=== PATIENT | female | born 1955 | race Caucasian/White ===

== ENCOUNTER → 2016-06-21 | Outpatient (CLI) | payer OTHER ==
[~2016-06-21] MED LIST: ACET500T76 PO; ALBU8.5H5 PO; AMLO5TAB2 PO; ANAS1TAB PO; CALC200T3 PO; CEFD125S3 PO; CHOL100018 PO; CIPR500T87 PO; COLE1TAB2 PO; COLE1TAB4 PO; DOXY100C2 PO; ESCI10TA PO; ESCI20TA PO; ESOM40CA PO; FAMC500T33 PO; FLUT1DIS3; GABA100C8 PO; HYDR-3240 PO; HYDR-882; HYDR-882 PO; HYDR25TA6 PO; HYDR2TAB13 PO; LANS30CA16 PO; LEVO100T PO; LEVO125T5 PO; LEVO500T33 PO; LOSA50TA6 PO; OCTR20KI IM; TRAZ100T15 PO; TRAZ50TA18 PO; WARF3TAB PO; WARF7.5T PO; ZOLP10TA5 PO
== END | disposition home or self-care (01) ==
LOC: ROC 07:44
PROVIDERS: ATTEND Radiology Radiation Oncology
DX: C50.912 Malignant neoplasm of unspecified site of left female breast (principal); R91.1 Solitary pulmonary nodule; Z17.0 Estrogen receptor positive status [ER+]
CPT/HCPCS: 99213; G0463

== ENCOUNTER 2016-08-06 13:56 | Inpatient (IN) | payer OTHER ==
[~2016-08-06] VITALS: Ht 167.6 cm; Wt 102.0 kg
[2016-08-06 14:44] LABS: BLOOD UREA NITROGEN 20 mg/dL (7-18)
[2016-08-06 14:46] LABS: ACETAMINOPHEN < 2 mcg/mL (10-30)
[2016-08-06] MEDS ORDERED: POTASSIUM CHLORIDE 20 MEQ TAB.ER.PRT PO ONE ×3 (16:00→19:30)
[2016-08-06] MEDS ORDERED: OXYC5CAP4 PO (16:07)
[2016-08-06] MEDS ORDERED: MINO100C PO (16:07)
[2016-08-06] MEDS ORDERED: LANS30CA PO (16:11)
[2016-08-06] MEDS ORDERED: LEVO150T PO (16:11)
[2016-08-06] MEDS ORDERED: ONDA-40 PO (16:11)
[2016-08-06] MEDS ORDERED: OXYcodone/APAP 5/325MG TABLET ONE (16:20)
[2016-08-06] MEDS ORDERED: POTASSIUM CHLORIDE 20 MEQ TAB.ER.PRT ONE (16:25)
[2016-08-06] MEDS: OXYcodone/APAP 5/325MG TABLET PO PRN ×2 (16:27→22:25)
[2016-08-06] MEDS ORDERED: OXYcodone/APAP 5/325MG TABLET PO ONE (16:30)
[2016-08-06 16:31] LABS: DAU SCREEN DISCLAIMER
[2016-08-06] MEDS ORDERED: ENOX40SY4 SQ (16:39)
[2016-08-06] MEDS ORDERED: POLYETHYLENE GLYCOL 17 GM PACKET PO PRN ×2 (17:00→17:30)
[2016-08-06] MEDS ORDERED: HYDROcodone/APAP 5/325 TABLET PO PRN (17:00)
[2016-08-06] MEDS ORDERED: PLEASE ENTER HEIGHT AND WEIGHT MC SCH (17:00)
[2016-08-06] MEDS: ENOXAPARIN 40 MG/0.4 ML SQ SCH (17:30)
[2016-08-06] MEDS ORDERED: ONDANSETRON ODT 4 MG PO PRN (17:30)
[2016-08-06] MEDS ORDERED: POTASSIUM CHLORIDE 20 MEQ, MAGNESIUM SULFATE 1 GM, FOLIC ACID 1 MG, THIAMINE 100 MG, MV... IV SCH (17:30)
[2016-08-06] MEDS ORDERED: LABETALOL 5MG/ML, 20ML IV PRN (17:30)
[2016-08-06] MEDS ORDERED: ONDANSETRON 2MG/ML, 2ML IVP PRN (17:30)
[2016-08-06 18:29] VITALS: BP 125/77
[2016-08-06] MEDS ORDERED: MAGNESIUM SULFATE PMX 2GM/50ML 50 ML IV ONE (19:30)
[2016-08-06] MEDS: GABAPENTIN 100 MG CAPSULE PO SCH ×2 (21:00→21:24)
[2016-08-06] MEDS: LOSARTAN 50MG TABLET PO SCH (21:23)
[2016-08-06] MEDS: TRAZODONE 100MG TABLET PO SCH (21:23)
[2016-08-06] MEDS: SODIUM CHLORIDE 0.9% 1,000 ML IV SCH (21:24)
[2016-08-07 01:04] VITALS: BP 119/74
[2016-08-07] MEDS: HYDROcodone/APAP 5/325 TABLET PO PRN ×3 (04:21→20:10)
[2016-08-07 04:41] LABS: BLOOD UREA NITROGEN 17 mg/dL (7-18)
[2016-08-07 04:45] LABS: ASPARTATE AMINO TRANSFERASE 24 U/L (15-37)
[2016-08-07 05:05] LABS: PATH.CAST-FLAG NOT PRESENT; SPERM-FLAG NOT PRESENT; SRC-FLAG NOT PRESENT; XTAL-FLAG NOT PRESENT; YLC-FLAG NOT PRESENT
[2016-08-07] MEDS: LEVOTHYROXINE 150 MCG TABLET PO SCH (05:35)
[2016-08-07 06:44] VITALS: BP 127/84
[2016-08-07] MEDS: FAMCICLOVIR 500 MG TABLET PO SCH (07:50)
[2016-08-07] MEDS: GABAPENTIN 100 MG CAPSULE PO SCH ×3 (07:50→22:08)
[2016-08-07] MEDS: HYDROCHLOROTHIAZIDE 25 MG TABLET PO SCH (07:51)
[2016-08-07] MEDS: AMLODIPINE 5 MG TABLET PO SCH (07:51)
[2016-08-07] MEDS: SERTRALINE 50MG TABLET PO SCH (07:51)
[2016-08-07] MEDS: SENNA/DOCUSATE TABLET PO SCH (07:51)
[2016-08-07] MEDS: PANTOPROZOLE 40MG TABLET PO SCH (07:51)
[2016-08-07] MEDS: ANASTROZOLE 1 MG TABLET PO SCH (07:52)
[2016-08-07] MEDS: LOSARTAN 50MG TABLET PO SCH ×2 (07:52→22:08)
[2016-08-07] MEDS: SODIUM CHLORIDE 0.9% 1,000 ML IV SCH (07:57)
[2016-08-07] MEDS ORDERED: SENNA/DOCUSATE TABLET PO SCH (09:00)
[2016-08-07] MEDS: OCTREOTIDE 100MCG/ML, 1ML (0.1MG/ML) SQ PRN (12:38)
[2016-08-07 13:11] VITALS: BP 129/70
[2016-08-07] MEDS: ENOXAPARIN 40 MG/0.4 ML SQ SCH (15:26)
[2016-08-07 18:48] VITALS: BP 131/75
[2016-08-07] MEDS: TRAZODONE 100MG TABLET PO SCH (22:08)
[2016-08-07] MEDS: SODIUM CHLORIDE FLUSH 10ML SYR IVF SCH (22:09)
[2016-08-08 02:15] VITALS: BP 111/69
[2016-08-08 05:16] LABS: ASPARTATE AMINO TRANSFERASE 22 U/L (15-37); BLOOD UREA NITROGEN 18 mg/dL (7-18)
[2016-08-08] MEDS: LEVOTHYROXINE 150 MCG TABLET PO SCH (05:51)
[2016-08-08] MEDS: ANASTROZOLE 1 MG TABLET PO SCH (08:08)
[2016-08-08] MEDS: SERTRALINE 50MG TABLET PO SCH (08:11)
[2016-08-08] MEDS: FAMCICLOVIR 500 MG TABLET PO SCH (08:11)
[2016-08-08] MEDS: HYDROCHLOROTHIAZIDE 25 MG TABLET PO SCH (08:11)
[2016-08-08] MEDS: LOSARTAN 50MG TABLET PO SCH ×2 (08:11→20:31)
[2016-08-08] MEDS: PANTOPROZOLE 40MG TABLET PO SCH (08:11)
[2016-08-08] MEDS: AMLODIPINE 5 MG TABLET PO SCH (08:11)
[2016-08-08] MEDS: GABAPENTIN 100 MG CAPSULE PO SCH ×3 (08:12→20:31)
[2016-08-08] MEDS: SENNA/DOCUSATE TABLET PO SCH (08:12)
[2016-08-08] MEDS: SODIUM CHLORIDE FLUSH 10ML SYR IVF SCH ×2 (08:12→20:30)
[2016-08-08 08:16] VITALS: BP 150/89
[2016-08-08] MEDS: OCTREOTIDE 100MCG/ML, 1ML (0.1MG/ML) SQ PRN ×2 (08:38→20:30)
[2016-08-08 14:18] VITALS: BP 121/74
[2016-08-08] MEDS: ENOXAPARIN 40 MG/0.4 ML SQ SCH (16:02)
[2016-08-08 20:28] VITALS: BP 129/87
[2016-08-08] MEDS: DOXYCYCLINE 100MG TABLET PO SCH (20:30)
[2016-08-08] MEDS: TRAZODONE 100MG TABLET PO SCH (20:31)
[2016-08-09 01:55] VITALS: BP 143/81
[2016-08-09] MEDS: HYDROcodone/APAP 5/325 TABLET PO PRN ×3 (02:01→18:01)
[2016-08-09] MEDS ORDERED: LEVOTHYROXINE 150 MCG TABLET PO SCH (06:00)
[2016-08-09] MEDS: LEVOTHYROXINE 175 MCG TABLET PO SCH (06:13)
[2016-08-09] MEDS: PANTOPROZOLE 40MG TABLET PO SCH (07:57)
[2016-08-09] MEDS: ANASTROZOLE 1 MG TABLET PO SCH (08:00)
[2016-08-09] MEDS: LOSARTAN 50MG TABLET PO SCH ×2 (08:01→20:10)
[2016-08-09] MEDS: FAMCICLOVIR 500 MG TABLET PO SCH (08:01)
[2016-08-09] MEDS: AMLODIPINE 5 MG TABLET PO SCH (08:02)
[2016-08-09] MEDS: HYDROCHLOROTHIAZIDE 25 MG TABLET PO SCH (08:02)
[2016-08-09] MEDS: SENNA/DOCUSATE TABLET PO SCH (08:02)
[2016-08-09] MEDS: GABAPENTIN 100 MG CAPSULE PO SCH ×3 (08:02→20:08)
[2016-08-09] MEDS: SERTRALINE 50MG TABLET PO SCH (08:03)
[2016-08-09] MEDS: DOXYCYCLINE 100MG TABLET PO SCH ×2 (08:03→20:08)
[2016-08-09 08:05] VITALS: BP 143/84
[2016-08-09] MEDS: SODIUM CHLORIDE FLUSH 10ML SYR IVF SCH ×2 (08:55→20:09)
[2016-08-09] MEDS: OCTREOTIDE 100MCG/ML, 1ML (0.1MG/ML) SQ PRN (12:36)
[2016-08-09 13:31] VITALS: BP 108/70
[2016-08-09] MEDS: ENOXAPARIN 40 MG/0.4 ML SQ SCH (18:01)
[2016-08-09 20:05] VITALS: BP 103/66
[2016-08-09] MEDS: TRAZODONE 100MG TABLET PO SCH (20:08)
[2016-08-10 01:20] VITALS: BP 111/67
[2016-08-10] MEDS: LEVOTHYROXINE 175 MCG TABLET PO SCH (05:25)
[2016-08-10] MEDS: HYDROcodone/APAP 5/325 TABLET PO PRN ×4 (05:25→20:31)
[2016-08-10] MEDS: OCTREOTIDE 100MCG/ML, 1ML (0.1MG/ML) SQ PRN ×2 (05:34→13:40)
[2016-08-10 07:56] VITALS: BP 103/72
[2016-08-10] MEDS: PANTOPROZOLE 40MG TABLET PO SCH (08:25)
[2016-08-10] MEDS: GABAPENTIN 100 MG CAPSULE PO SCH ×3 (08:26→20:32)
[2016-08-10] MEDS: DOXYCYCLINE 100MG TABLET PO SCH ×2 (08:26→20:32)
[2016-08-10] MEDS: AMLODIPINE 5 MG TABLET PO SCH ×2 (08:26→09:00)
[2016-08-10] MEDS: SENNA/DOCUSATE TABLET PO SCH (08:27)
[2016-08-10] MEDS: LOSARTAN 50MG TABLET PO SCH ×2 (08:27→20:32)
[2016-08-10] MEDS: SERTRALINE 50MG TABLET PO SCH (08:28)
[2016-08-10] MEDS: SODIUM CHLORIDE FLUSH 10ML SYR IVF SCH ×2 (08:29→21:50)
[2016-08-10] MEDS: HYDROCHLOROTHIAZIDE 25 MG TABLET PO SCH (08:29)
[2016-08-10] MEDS: FAMCICLOVIR 500 MG TABLET PO SCH (08:30)
[2016-08-10] MEDS: ANASTROZOLE 1 MG TABLET PO SCH (08:37)
[2016-08-10 12:26] VITALS: BP 101/65
[2016-08-10] MEDS: ENOXAPARIN 40 MG/0.4 ML SQ SCH (17:19)
[2016-08-10 19:50] VITALS: BP 113/75
[2016-08-10] MEDS: TRAZODONE 100MG TABLET PO SCH (21:50)
[2016-08-11 00:32] VITALS: BP 102/67
[2016-08-11] MEDS: LEVOTHYROXINE 175 MCG TABLET PO SCH (06:03)
[2016-08-11] MEDS: PANTOPROZOLE 40MG TABLET PO SCH (07:30)
[2016-08-11 08:05] VITALS: BP 135/85
[2016-08-11] MEDS: GABAPENTIN 100 MG CAPSULE PO SCH ×3 (08:58→19:47)
[2016-08-11] MEDS: AMLODIPINE 5 MG TABLET PO SCH (08:58)
[2016-08-11] MEDS: HYDROCHLOROTHIAZIDE 25 MG TABLET PO SCH (08:58)
[2016-08-11] MEDS: LOSARTAN 50MG TABLET PO SCH ×2 (08:58→19:47)
[2016-08-11] MEDS: FAMCICLOVIR 500 MG TABLET PO SCH (08:58)
[2016-08-11] MEDS: DOXYCYCLINE 100MG TABLET PO SCH ×2 (08:58→19:47)
[2016-08-11] MEDS: SENNA/DOCUSATE TABLET PO SCH (08:58)
[2016-08-11] MEDS: OCTREOTIDE 100MCG/ML, 1ML (0.1MG/ML) SQ PRN ×2 (08:59→18:26)
[2016-08-11] MEDS: SERTRALINE 50MG TABLET PO SCH (09:00)
[2016-08-11] MEDS: SODIUM CHLORIDE FLUSH 10ML SYR IVF SCH ×2 (09:00→19:46)
[2016-08-11] MEDS: ANASTROZOLE 1 MG TABLET PO SCH (09:02)
[2016-08-11] MEDS: HYDROcodone/APAP 5/325 TABLET PO PRN ×3 (11:18→22:53)
[2016-08-11 15:20] VITALS: BP 114/71
[2016-08-11] MEDS: ENOXAPARIN 40 MG/0.4 ML SQ SCH (16:26)
[2016-08-11 19:18] VITALS: BP 113/71
[2016-08-11] MEDS: TRAZODONE 100MG TABLET PO SCH (19:47)
[2016-08-12 03:10] VITALS: BP 104/67
[2016-08-12] MEDS: LEVOTHYROXINE 175 MCG TABLET PO SCH (05:26)
[2016-08-12] MEDS: HYDROcodone/APAP 5/325 TABLET PO PRN ×2 (06:10→16:37)
[2016-08-12 07:19] VITALS: BP 115/68
[2016-08-12] MEDS: AMLODIPINE 5 MG TABLET PO SCH (07:22)
[2016-08-12] MEDS: GABAPENTIN 100 MG CAPSULE PO SCH ×3 (07:22→16:18)
[2016-08-12] MEDS: SENNA/DOCUSATE TABLET PO SCH (07:22)
[2016-08-12] MEDS: FAMCICLOVIR 500 MG TABLET PO SCH (07:23)
[2016-08-12] MEDS: HYDROCHLOROTHIAZIDE 25 MG TABLET PO SCH (07:23)
[2016-08-12] MEDS: DOXYCYCLINE 100MG TABLET PO SCH (07:23)
[2016-08-12] MEDS: SERTRALINE 50MG TABLET PO SCH (07:23)
[2016-08-12] MEDS: LOSARTAN 50MG TABLET PO SCH (07:23)
[2016-08-12] MEDS: PANTOPROZOLE 40MG TABLET PO SCH (07:23)
[2016-08-12] MEDS: SODIUM CHLORIDE FLUSH 10ML SYR IVF SCH (07:24)
[2016-08-12] MEDS: ANASTROZOLE 1 MG TABLET PO SCH (07:25)
[2016-08-12] MEDS: OCTREOTIDE 100MCG/ML, 1ML (0.1MG/ML) SQ PRN ×2 (10:18→17:52)
[2016-08-12 13:14] VITALS: BP 106/68
[2016-08-12] MEDS ORDERED: SERT50TA5 PO (15:39)
[2016-08-12] MEDS ORDERED: DOXY100T PO (15:39)
[2016-08-12] MEDS: ENOXAPARIN 40 MG/0.4 ML SQ SCH (16:17)
== END 2016-08-12 18:03 | disposition home or self-care (01) | DRG 683 ==
LOC: ED 15:12 → UNDOADMOB 15:53 → EDIP 15:53 → INTOOBSV 17:04 → OBSVTOIN 17:04 → EDIP 17:04 → 3NW 18:37
PROVIDERS: ADMIT Family Medicine; ATTEND Family Medicine
DX: N17.0 Acute kidney failure with tubular necrosis (principal); R45.851 Suicidal ideations; F32.9 Major depressive disorder, single episode, unspecified; I10 Essential (primary) hypertension; D72.829 Elevated white blood cell count, unspecified; E87.6 Hypokalemia; E03.9 Hypothyroidism, unspecified; G47.00 Insomnia, unspecified; J45.909 Unspecified asthma, uncomplicated; G47.33 Obstructive sleep apnea (adult) (pediatric); E55.9 Vitamin D deficiency, unspecified; G89.29 Other chronic pain; R91.1 Solitary pulmonary nodule; M54.9 Dorsalgia, unspecified; K21.9 Gastro-esophageal reflux disease without esophagitis; Z79.01 Long term (current) use of anticoagulants; Z79.899 Other long term (current) drug therapy; Z80.3 Family history of malignant neoplasm of breast; Z81.8 Family history of other mental and behavioral disorders; Z82.49 Family history of ischemic heart disease and other diseases of the circulatory system; Z85.3 Personal history of malignant neoplasm of breast; Z86.711 Personal history of pulmonary embolism; Z82.5 Family history of asthma and other chronic lower respiratory diseases; Z83.3 Family history of diabetes mellitus; Z87.440 Personal history of urinary (tract) infections; Z63.0 Problems in relationship with spouse or partner; Z88.1 Allergy status to other antibiotic agents; Z88.5 Allergy status to narcotic agent; Z88.8 Allergy status to other drugs, medicaments and biological substances; Z90.49 Acquired absence of other specified parts of digestive tract; Z98.49 Cataract extraction status, unspecified eye; F11.90 Opioid use, unspecified, uncomplicated; F13.90 Sedative, hypnotic, or anxiolytic use, unspecified, uncomplicated; F12.10 Cannabis abuse, uncomplicated
CPT/HCPCS: 36415; 80048; 80053; 80307; 80329; 81003; 82040; 82746; 83036; 83735; 84425; 84439; 84443; 85025; 85610; 87086; J1650; J2354; G0480; J3475; J7030

== ENCOUNTER 2016-08-21 19:45 | Observation (INO) | payer OTHER ==
[~2016-08-21] VITALS: Ht 167.6 cm; Wt 100.9 kg
[~2016-08-21 19:45] MED LIST changes: +DOXY100T PO; +ENOX40SY4 SQ; +LANS30CA PO; +LEVO150T PO; +MINO100C PO; +ONDA-40 PO; +OXYC5CAP4 PO; +SERT50TA5 PO
[2016-08-21 21:49] LABS: BLOOD UREA NITROGEN 16 mg/dL (7-18)
[2016-08-21 22:01] LABS: IS PT STATUS REG ER OR PRE ER? YES
[2016-08-21] MEDS ORDERED: SODIUM CHLORIDE 0.9% 1,000ML IVBOLUS ONE (22:30)
[2016-08-21] MEDS ORDERED: POTASSIUM CHLORIDE 20 MEQ TAB.ER.PRT PO ONE (23:00)
[2016-08-21] MEDS ORDERED: ENOXAPARIN 100 MG/ML SQ ONE (23:30)
[2016-08-21] MEDS ORDERED: POTASSIUM CHLORIDE 20 MEQ TAB.ER.PRT ONE (23:40)
[2016-08-21] MEDS ORDERED: OMNIPAQUE 350 MG/ML, 100ML BOTTLE ONE (23:56)
[2016-08-22 01:00] VITALS: BP 123/83
[2016-08-22] MEDS ORDERED: ONDANSETRON ODT 4 MG PO PRN (01:00)
[2016-08-22] MEDS ORDERED: ACETAMINOPHEN 325 MG TABLET PO PRN (01:00)
[2016-08-22 01:40] VITALS: BP 132/80
[2016-08-22] MEDS: HYDROcodone/APAP 5/325 TABLET PO PRN ×3 (02:09→08:29)
[2016-08-22 05:37] LABS: BLOOD UREA NITROGEN 15 mg/dL (7-18)
[2016-08-22] MEDS ORDERED: POTASSIUM CHLORIDE 20 MEQ TAB.ER.PRT PO ONE (06:00)
[2016-08-22] MEDS ORDERED: LEVOTHYROXINE 175 MCG TABLET PO SCH (06:00)
[2016-08-22 08:00] VITALS: BP 131/84
[2016-08-22] MEDS ORDERED: FAMCICLOVIR 500 MG TABLET PO SCH (09:00)
[2016-08-22] MEDS ORDERED: ENOXAPARIN 100 MG/ML SQ SCH (09:00)
[2016-08-22] MEDS ORDERED: AMLODIPINE 5 MG TABLET PO SCH (09:00)
[2016-08-22] MEDS ORDERED: LOSARTAN 50MG TABLET PO SCH (09:00)
[2016-08-22] MEDS ORDERED: HYDROCHLOROTHIAZIDE 25 MG TABLET PO SCH (09:00)
[2016-08-22] MEDS ORDERED: GABAPENTIN 100 MG CAPSULE PO SCH (09:00)
[2016-08-22] MEDS ORDERED: SERTRALINE 50MG TABLET PO SCH (09:00)
[2016-08-22] MEDS ORDERED: ANASTROZOLE 1 MG TABLET PO SCH (09:00)
[2016-08-22 13:14] VITALS: BP 114/71
[2016-08-22] MEDS ORDERED: TRAZODONE 100MG TABLET PO SCH (21:00)
== END 2016-08-22 14:00 | disposition home or self-care (01) ==
LOC: ED 22:11 → EDIP 23:30 → INTOOBSV 23:30 → 4WST 08-22 01:03
PROVIDERS: ADMIT Internal Medicine; ATTEND Internal Medicine
DX: I26.99 Other pulmonary embolism without acute cor pulmonale (principal); E87.6 Hypokalemia; F41.9 Anxiety disorder, unspecified; E34.0 Carcinoid syndrome; F19.20 Other psychoactive substance dependence, uncomplicated; G47.00 Insomnia, unspecified; I10 Essential (primary) hypertension; K21.9 Gastro-esophageal reflux disease without esophagitis; Z80.3 Family history of malignant neoplasm of breast; Z82.49 Family history of ischemic heart disease and other diseases of the circulatory system; Z85.3 Personal history of malignant neoplasm of breast; Z86.711 Personal history of pulmonary embolism; Z90.10 Acquired absence of unspecified breast and nipple
CPT/HCPCS: 36415; 71010; 71275; 80048; 82040; 84484; 85025; 85379; 87324; 93005; 96361; 96372; 99285; G0378; J1650; J7030; Q9967

== ENCOUNTER 2016-08-31 15:52 | Emergency (ER) | payer OTHER ==
[~2016-08-31] VITALS: Ht 167.6 cm; Wt 101.2 kg
[2016-08-31] MEDS ORDERED: ONDANSETRON 2MG/ML, 2ML IVPush ONE (17:00)
[2016-08-31] MEDS ORDERED: MORPHINE SULFATE 4 MG/ML, 1ML IVPush PRN (17:00)
[2016-08-31 17:25] LABS: BLOOD UREA NITROGEN 20 mg/dL (7-18)
[2016-08-31 17:31] LABS: IS PT STATUS REG ER OR PRE ER? YES
[2016-08-31] MEDS ORDERED: ONDANSETRON 2MG/ML, 2ML ONE (17:33)
[2016-08-31] MEDS ORDERED: MORPHINE SULFATE 4 MG/ML, 1ML ONE (17:33)
[2016-08-31] MEDS ORDERED: ENOX100S5 SQ (17:41)
[2016-08-31] MEDS ORDERED: OCTR50AM SC (17:47)
[2016-08-31] MEDS ORDERED: OCTR50AM IM (17:47)
[2016-08-31 18:41] VITALS: BP 114/63
== END 2016-08-31 19:15 | disposition home or self-care (01) ==
LOC: ED 18:50
DX: Z86.711 Personal history of pulmonary embolism (principal); I10 Essential (primary) hypertension; K21.9 Gastro-esophageal reflux disease without esophagitis; E07.9 Disorder of thyroid, unspecified
CPT/HCPCS: 36415; 71010; 80048; 82040; 83880; 84484; 85025; 85610; 85730; 93005; 96374; 96375; 99285; J2405

== ENCOUNTER 2016-12-14 21:19 | Emergency (ER) | payer OTHER ==
[~2016-12-14] VITALS: Ht 167.6 cm; Wt 100.4 kg
[~2016-12-14 21:19] MED LIST changes: +ACET500T71 PO; -ACET500T76 PO; +CHOL100012 PO; -CHOL100018 PO; -COLE1TAB4 PO; +COLE1TAB5 PO; +ENOX100S5 SQ; +GABA-826 PO; -GABA100C8 PO; -HYDR2TAB13 PO; +HYDR2TAB29 PO; -LANS30CA16 PO; +LANS30CA60 PO; -LEVO500T33 PO; +LEVO500T47 PO; +OCTR50AM IM; +OCTR50AM SC; -ONDA-40 PO; +ONDA8TAB15 PO; +OXYC5CAP2 PO; -OXYC5CAP4 PO
[2016-12-14] MEDS ORDERED: SODIUM CHLORIDE 0.9% 1,000 ML IV ONE (22:46)
[2016-12-14] MEDS ORDERED: ONDANSETRON 2MG/ML, 2ML ONE (22:54)
[2016-12-14] MEDS ORDERED: ONDANSETRON 2MG/ML, 2ML IVPush ONE (23:00)
[2016-12-14] MEDS ORDERED: SODIUM CHLORIDE FLUSH 10ML SYR IVF ONE (23:00)
[2016-12-14 23:18] LABS: HEMOGLOBIN 13.8 g/dL (11.7-16.4); WHITE BLOOD COUNT 13.3 x10^3/uL (3.4-10)
[2016-12-14 23:27] LABS: BLOOD UREA NITROGEN 18 mg/dL (7-18)
[2016-12-14 23:33] LABS: ASPARTATE AMINO TRANSFERASE 15 U/L (15-37)
[2016-12-14 23:42] LABS: IS PT STATUS REG ER OR PRE ER? YES
[2016-12-15] MEDS ORDERED: POTASSIUM CHLORIDE 20 MEQ TAB.ER.PRT PO ONE
[2016-12-15] MEDS ORDERED: POTASSIUM CHLORIDE 20 MEQ TAB.ER.PRT ONE (00:01)
[2016-12-15 00:05] VITALS: BP 118/83
== END 2016-12-15 00:04 | disposition home or self-care (01) ==
LOC: ED 23:03
DX: R07.2 Precordial pain (principal); E87.6 Hypokalemia; K21.9 Gastro-esophageal reflux disease without esophagitis; E07.9 Disorder of thyroid, unspecified; Z85.3 Personal history of malignant neoplasm of breast; Z86.711 Personal history of pulmonary embolism; Z86.718 Personal history of other venous thrombosis and embolism; Z98.890 Other specified postprocedural states; Z88.5 Allergy status to narcotic agent; Z88.1 Allergy status to other antibiotic agents; Z88.8 Allergy status to other drugs, medicaments and biological substances
CPT/HCPCS: 36415; 71010; 80053; 83880; 84484; 85025; 85610; 85730; 93005; 96361; 96374; 99285; J2405; J7030

== ENCOUNTER → 2017-02-16 | Outpatient (CLI) | payer OTHER | END | disposition home or self-care (01) | LOC: CFH 15:26 | PROVIDERS: ATTEND Physical Medicine & Rehabilitation | DX: M48.061 Spinal stenosis, lumbar region without neurogenic claudication (principal); M48.07 Spinal stenosis, lumbosacral region; M51.26 Other intervertebral disc displacement, lumbar region; M51.27 Other intervertebral disc displacement, lumbosacral region; M43.16 Spondylolisthesis, lumbar region | CPT/HCPCS: 72148 ==

== ENCOUNTER → 2017-06-10 | Outpatient (CLI) | payer OTHER ==
[~2017-06-10] MED LIST changes: +CROMOLYN INH; +GABA300C10 PO; +OCTREOTIDE SQ; +WARF5TAB PO
== END | disposition home or self-care (01) ==
LOC: ROC 07:20
PROVIDERS: ATTEND Radiology Radiation Oncology
DX: C50.912 Malignant neoplasm of unspecified site of left female breast (principal)
CPT/HCPCS: 99213; G0463

== ENCOUNTER 2017-08-25 17:20 | Emergency (ER) | payer OTHER ==
[~2017-08-25] VITALS: Ht 167.6 cm; Wt 102.0 kg
[2017-08-25 17:48] LABS: BASOPHILS # (AUTO) 0.06 x10^3/uL (0-0.1); BASOPHILS % (AUTO) 1 % (0-1); EOSINOPHILS # (AUTO) 0.08 x10^3/uL (0-0.4); EOSINOPHILS % (AUTO) 1 % (1-7); LYMPHOCYTES # (AUTO) 2.31 x10^3/uL (1-3.4); LYMPHOCYTES % (AUTO) 18 % (22-44); MD NO; MEAN CORPUSCULAR HEMOGLOBIN 29.7 pg (27.0-34.8); MEAN CORPUSCULAR HGB CONC 33.2 g/dL (32.4-35.8); MEAN CORPUSCULAR VOLUME 89.6 fL (80-100); MEAN PLATELET VOLUME 8.6 fL (7.4-10.4); MONOCYTES # (AUTO) 0.93 x10^3/uL (0.2-0.8); MONOCYTES % (AUTO) 7 % (2-9); NEUTROPHILS # (AUTO) 9.56 x10^3/uL (1.8-6.8); NEUTROPHILS % (AUTO) 74 % (42-75); PLATELET COUNT 304 x10^3/uL (130-400); RED BLOOD COUNT 4.88 x10^6/uL (3.82-5.3); RED CELL DISTRIBUTION WIDTH 15.1 % (9.6-15.2)
[2017-08-25 18:00] LABS: ALANINE AMINOTRANSFERASE 22 U/L (12-78); ALBUMIN 3.8 g/dL (3.4-5.0); ANION GAP 10 mmol/L (5-15); CALCIUM 8.9 mg/dL (8.5-10.1); CHLORIDE 102 mmol/L (98-107)
[2017-08-25] MEDS ORDERED: ALBUTEROL/IPRATROPIUM 2.5MG/0.5MG, 3 ML NPPB ONE (18:00)
[2017-08-25 18:04] LABS: ALKALINE PHOSPHATASE 98 U/L (45-117); BILIRUBIN,TOTAL 0.3 mg/dL (0.2-1.0); TOTAL PROTEIN 8.3 g/dL (6.4-8.2); TROPONIN I < 0.015 ng/mL (0.000-0.045)
[2017-08-25 18:24] LABS: INTERNATIONAL NORMALIZED RATIO 2.67 (0.93-1.1); PROTHROMBIN TIME 27.2 Seconds (9.6-11.5)
[2017-08-25] MEDS ORDERED: ALBUTEROL/IPRATROPIUM 2.5MG/0.5MG, 3 ML ONE (18:39)
[2017-08-25 18:45] VITALS: BP 137/77
== END 2017-08-25 19:19 | disposition home or self-care (01) ==
LOC: ED 18:13
DX: R06.00 Dyspnea, unspecified (principal); K21.9 Gastro-esophageal reflux disease without esophagitis; I10 Essential (primary) hypertension; J45.909 Unspecified asthma, uncomplicated; Z86.718 Personal history of other venous thrombosis and embolism; Z86.711 Personal history of pulmonary embolism; Z90.49 Acquired absence of other specified parts of digestive tract
CPT/HCPCS: 36415; 71045; 80053; 83880; 84484; 85025; 85610; 85730; 93005; 94640; 99285; J7512; J7620

== ENCOUNTER 2017-09-27 15:34 | Inpatient (IN) | payer OTHER ==
[~2017-09-27] VITALS: Ht 167.6 cm; Wt 102.7 kg
[2017-09-27 16:06] LABS: BASOPHILS % (AUTO) 0 % (0-1); EOSINOPHILS # (AUTO) 0.03 x10^3/uL (0-0.4); EOSINOPHILS % (AUTO) 0 % (1-7); LYMPHOCYTES # (AUTO) 1.22 x10^3/uL (1-3.4); LYMPHOCYTES % (AUTO) 12 % (22-44); MD NO; MEAN CORPUSCULAR HEMOGLOBIN 30.2 pg (27.0-34.8); MEAN CORPUSCULAR VOLUME 91.6 fL (80-100); MEAN PLATELET VOLUME 8.9 fL (7.4-10.4); MONOCYTES # (AUTO) 0.79 x10^3/uL (0.2-0.8); MONOCYTES % (AUTO) 8 % (2-9); NEUTROPHILS # (AUTO) 8.35 x10^3/uL (1.8-6.8); NEUTROPHILS % (AUTO) 80 % (42-75); PLATELET COUNT 284 x10^3/uL (130-400); RED BLOOD COUNT 4.85 x10^6/uL (3.82-5.3); RED CELL DISTRIBUTION WIDTH 15.4 % (9.6-15.2)
[2017-09-27 16:16] LABS: INTERNATIONAL NORMALIZED RATIO 2.49 (0.93-1.1); PROTHROMBIN TIME 25.2 Seconds (9.6-11.5)
[2017-09-27 16:19] LABS: ALANINE AMINOTRANSFERASE 25 U/L (12-78); ALBUMIN 3.8 g/dL (3.4-5.0); ANION GAP 9 mmol/L (5-15); CALCIUM 9.2 mg/dL (8.5-10.1); CHLORIDE 106 mmol/L (98-107)
[2017-09-27 16:21] LABS: ALKALINE PHOSPHATASE 114 U/L (45-117); BILIRUBIN,TOTAL 0.4 mg/dL (0.2-1.0); TOTAL PROTEIN 8.3 g/dL (6.4-8.2)
[2017-09-27 16:26] LABS: TROPONIN I < 0.015 ng/mL (0.000-0.045)
[2017-09-27] MEDS ORDERED: hydrALAzine 20 MG/ML, 1ML IVPush PRN (18:00)
[2017-09-27] MEDS ORDERED: DOCUSATE 100 MG CAPSULE PO PRN (18:00)
[2017-09-27] MEDS ORDERED: BISACODYL 10 MG SUPP PR PRN (18:00)
[2017-09-27] MEDS ORDERED: KETOROLAC 30 MG/1 ML IVPush PRN (18:00)
[2017-09-27] MEDS ORDERED: ONDANSETRON 2MG/ML, 2ML IVPush PRN (18:00)
[2017-09-27] MEDS ORDERED: POLYETHYLENE GLYCOL 17 GM PACKET PO PRN (18:00)
[2017-09-27] MEDS ORDERED: AMLODIPINE 2.5 MG TABLET PO PRN (18:30)
[2017-09-27] MEDS ORDERED: WARFARIN BIOPROSTHETIC VALVE PROTOCOL 2-3 XX PRN (18:30)
[2017-09-27 19:03] VITALS: BP 126/81
[2017-09-27] MEDS ORDERED: WARFARIN 5 MG TABLET PO-COUM ONE (19:30)
[2017-09-27] MEDS: ANASTRAZOLE MC SCH (19:30)
[2017-09-27] MEDS: SODIUM CHLORIDE FLUSH 10ML SYR IVF SCH (20:25)
[2017-09-27] MEDS: GUAIFENESIN ER 600 MG TABLET PO SCH (20:25)
[2017-09-27] MEDS: AMPICILLIN/SULBACTAM 3 GM in SODIUM CHLORIDE 0.9% 100 ML IV SCH (20:25)
[2017-09-27 20:49] VITALS: BP 126/81
[2017-09-27] MEDS ORDERED: TRAZODONE 100MG TABLET PO SCH (21:00)
[2017-09-27] MEDS ORDERED: OCTREOTIDE 100MCG/ML, 1ML (0.1MG/ML) SQ SCH (21:00)
[2017-09-27] MEDS: DOXYCYCLINE 100 MG in DEXTROSE 5% 250 ML IV SCH (21:42)
[2017-09-27 22:00] LABS: TROPONIN I < 0.015 ng/mL (0.000-0.045)
[2017-09-28 00:36] VITALS: BP 114/70
[2017-09-28 02:13] VITALS: BP 160/109
[2017-09-28 02:16] LABS: BASOPHILS # (AUTO) 0.04 x10^3/uL (0-0.1); BASOPHILS % (AUTO) 1 % (0-1); EOSINOPHILS # (AUTO) 0.07 x10^3/uL (0-0.4); EOSINOPHILS % (AUTO) 1 % (1-7); LYMPHOCYTES # (AUTO) 1.29 x10^3/uL (1-3.4); LYMPHOCYTES % (AUTO) 17 % (22-44); MD NO; MEAN CORPUSCULAR HGB CONC 32.9 g/dL (32.4-35.8); MEAN CORPUSCULAR VOLUME 91.1 fL (80-100); MEAN PLATELET VOLUME 9.1 fL (7.4-10.4); MONOCYTES # (AUTO) 0.72 x10^3/uL (0.2-0.8); MONOCYTES % (AUTO) 9 % (2-9); NEUTROPHILS # (AUTO) 5.61 x10^3/uL (1.8-6.8); NEUTROPHILS % (AUTO) 73 % (42-75); PLATELET COUNT 226 x10^3/uL (130-400); RED CELL DISTRIBUTION WIDTH 15.2 % (9.6-15.2)
[2017-09-28 02:20] LABS: INTERNATIONAL NORMALIZED RATIO 2.25 (0.93-1.1); PROTHROMBIN TIME 22.8 Seconds (9.6-11.5)
[2017-09-28 02:25] LABS: ANION GAP 7 mmol/L (5-15); CHLORIDE 108 mmol/L (98-107); CHOLESTEROL, TOTAL 128 mg/dL (140-239); CREATININE 0.83 mg/dL (0.55-1.02); TRIGLYCERIDES 107 mg/dL (50-200); VLDL CHOLESTEROL 21 mg/dL (0-25)
[2017-09-28 02:27] LABS: CHOL/HDL RATIO 3.6; HDL CHOL % 28 % (28-40); HDL CHOLESTEROL (DIRECT) 36 mg/dL (40-60); LDL CHOLESTEROL,CALCULATED 71 mg/dL (54-169)
[2017-09-28 02:31] LABS: TROPONIN I < 0.015 ng/mL (0.000-0.045)
[2017-09-28] MEDS: AMPICILLIN/SULBACTAM 3 GM in SODIUM CHLORIDE 0.9% 100 ML IV SCH ×4 (02:37→19:34)
[2017-09-28] MEDS: ANASTRAZOLE MC SCH (03:30)
[2017-09-28] MEDS: LEVOTHYROXINE 200 MCG TABLET PO SCH (05:19)
[2017-09-28 06:35] VITALS: BP 117/76
[2017-09-28] MEDS: ALBUTEROL/IPRATROPIUM 2.5MG/0.5MG, 3 ML NPPB PRN ×2 (07:30→13:48)
[2017-09-28] MEDS: PANTOPROZOLE 40MG TABLET PO SCH (08:05)
[2017-09-28] MEDS: DOXYCYCLINE 100 MG in DEXTROSE 5% 250 ML IV SCH ×2 (08:05→20:28)
[2017-09-28] MEDS: GUAIFENESIN ER 600 MG TABLET PO SCH ×2 (08:05→20:22)
[2017-09-28] MEDS: GABAPENTIN 100 MG CAPSULE PO SCH (08:05)
[2017-09-28] MEDS: OCTREOTIDE 500 MCG/ML, 1ML (0.5MG/ML) SQ SCH ×3 (08:05→20:23)
[2017-09-28] MEDS: LOSARTAN 50MG TABLET PO SCH (08:05)
[2017-09-28] MEDS: FAMCICLOVIR 500 MG TABLET PO SCH (08:05)
[2017-09-28] MEDS: SODIUM CHLORIDE FLUSH 10ML SYR IVF SCH ×2 (08:06→20:23)
[2017-09-28] MEDS ORDERED: SPIR25TA3 PO (08:10)
[2017-09-28] MEDS: ACETAMINOPHEN 325 MG TABLET PO PRN ×2 (08:50→17:13)
[2017-09-28] MEDS ORDERED: ANASTROZOLE 1 MG TABLET PO SCH (09:00)
[2017-09-28] MEDS ORDERED: GABAPENTIN 100 MG CAPSULE PO SCH (09:00)
[2017-09-28] MEDS: ANASTROZOLE 1 MG TABLET PO SCH (12:28)
[2017-09-28 12:35] VITALS: BP 114/73
[2017-09-28] MEDS ORDERED: WARFARIN 5 MG TABLET PO-COUM ONE (18:00)
[2017-09-28 19:12] VITALS: BP 125/76
[2017-09-28] MEDS ORDERED: GABAPENTIN 300 MG CAPSULE PO SCH (21:00)
[2017-09-28] MEDS ORDERED: TRAZODONE 50MG TABLET PO SCH (21:00)
[2017-09-29 01:20] VITALS: BP 113/74
[2017-09-29] MEDS: AMPICILLIN/SULBACTAM 3 GM in SODIUM CHLORIDE 0.9% 100 ML IV SCH ×2 (01:45→10:08)
[2017-09-29 05:19] LABS: INTERNATIONAL NORMALIZED RATIO 2.42 (0.93-1.1); PROTHROMBIN TIME 24.5 Seconds (9.6-11.5)
[2017-09-29] MEDS: LEVOTHYROXINE 200 MCG TABLET PO SCH (05:27)
[2017-09-29 05:33] LABS: BASOPHILS # (AUTO) 0.05 x10^3/uL (0-0.1); BASOPHILS % (AUTO) 1 % (0-1); EOSINOPHILS % (AUTO) 1 % (1-7); LYMPHOCYTES % (AUTO) 14 % (22-44); MD NO; MEAN CORPUSCULAR HEMOGLOBIN 30.3 pg (27.0-34.8); MEAN CORPUSCULAR HGB CONC 33.1 g/dL (32.4-35.8); MEAN CORPUSCULAR VOLUME 91.3 fL (80-100); MEAN PLATELET VOLUME 9.6 fL (7.4-10.4); MONOCYTES # (AUTO) 0.94 x10^3/uL (0.2-0.8); MONOCYTES % (AUTO) 12 % (2-9); NEUTROPHILS # (AUTO) 5.95 x10^3/uL (1.8-6.8); NEUTROPHILS % (AUTO) 73 % (42-75); PLATELET COUNT 217 x10^3/uL (130-400); RED BLOOD COUNT 4.29 x10^6/uL (3.82-5.3); RED CELL DISTRIBUTION WIDTH 15.5 % (9.6-15.2)
[2017-09-29 07:45] VITALS: BP 131/82
[2017-09-29] MEDS ORDERED: DOXYCYCLINE 100MG TABLET PO SCH (09:00)
[2017-09-29] MEDS ORDERED: AMOXICILLIN/CLAV 875-125MG TABLET PO SCH (09:00)
[2017-09-29] MEDS: ANASTROZOLE 1 MG TABLET PO SCH (10:06)
[2017-09-29] MEDS: GUAIFENESIN ER 600 MG TABLET PO SCH (10:07)
[2017-09-29] MEDS: LOSARTAN 50MG TABLET PO SCH (10:07)
[2017-09-29] MEDS: PANTOPROZOLE 40MG TABLET PO SCH (10:07)
[2017-09-29] MEDS: GABAPENTIN 100 MG CAPSULE PO SCH (10:08)
[2017-09-29] MEDS: FAMCICLOVIR 500 MG TABLET PO SCH (10:08)
[2017-09-29] MEDS: OCTREOTIDE 500 MCG/ML, 1ML (0.5MG/ML) SQ SCH (10:09)
[2017-09-29] MEDS: SODIUM CHLORIDE FLUSH 10ML SYR IVF SCH (10:15)
[2017-09-29] MEDS ORDERED: FLUT1AER PO (10:27)
[2017-09-29] MEDS: ALBUTEROL/IPRATROPIUM 2.5MG/0.5MG, 3 ML NPPB PRN (11:05)
[2017-09-29] MEDS ORDERED: DOXY100T PO (12:49)
[2017-09-29] MEDS ORDERED: AMOX1TAB12 PO (12:49)
[2017-09-29 13:58] VITALS: BP 127/78
[2017-09-29] MEDS ORDERED: WARFARIN 5 MG TABLET PO-COUM SCH (18:00)
== END 2017-09-29 14:30 | disposition home or self-care (01) | DRG 194 ==
LOC: ED 16:30 → EDIP 17:20 → 4WST 18:39 → DCLOUNGE 09-29 14:00
PROVIDERS: ADMIT Internal Medicine; ATTEND Internal Medicine
PROC: 5A09357 Assistance with Respiratory Ventilation, Less than 24 Consecutive Hours, Continuous Positive Airway Pressure (ICD-10-PCS; principal; 2017-09-27)
DX: J15.9 Unspecified bacterial pneumonia (principal); D68.69 Other thrombophilia; I11.9 Hypertensive heart disease without heart failure; E66.01 Morbid (severe) obesity due to excess calories; E89.0 Postprocedural hypothyroidism; G47.33 Obstructive sleep apnea (adult) (pediatric); E55.9 Vitamin D deficiency, unspecified; J45.909 Unspecified asthma, uncomplicated; K21.9 Gastro-esophageal reflux disease without esophagitis; D3A.090 Benign carcinoid tumor of the bronchus and lung; Z79.01 Long term (current) use of anticoagulants; Z68.35 Body mass index [BMI] 35.0-35.9, adult; Z82.49 Family history of ischemic heart disease and other diseases of the circulatory system; Z83.3 Family history of diabetes mellitus; Z85.3 Personal history of malignant neoplasm of breast; Z86.711 Personal history of pulmonary embolism; Z98.42 Cataract extraction status, left eye; Z98.41 Cataract extraction status, right eye
CPT/HCPCS: 36415; 71046; 80048; 80053; 80061; 84484; 85025; 85610; 85730; 87040; 87070; 87205; 93005; 93306; 94640; 94660; 99285; J0295; J1885; J2354; J7060; J7620

== ENCOUNTER 2017-09-30 15:25 | Emergency (ER) | payer OTHER ==
[~2017-09-30] VITALS: Ht 167.6 cm; Wt 99.1 kg
[~2017-09-30 15:25] MED LIST changes: +AMOX1TAB12 PO; +FLUT1AER PO; +SPIR25TA3 PO
[2017-09-30] MEDS ORDERED: MECLIZINE CHEWABLE 25 MG TAB ONE (16:12)
[2017-09-30] MEDS ORDERED: MECLIZINE CHEWABLE 25 MG TAB PO ONE (16:30)
[2017-09-30 17:49] LABS: BASOPHILS # (AUTO) 0.03 x10^3/uL (0-0.1); BASOPHILS % (AUTO) 0 % (0-1); EOSINOPHILS # (AUTO) 0.05 x10^3/uL (0-0.4); EOSINOPHILS % (AUTO) 1 % (1-7); LYMPHOCYTES # (AUTO) 1.82 x10^3/uL (1-3.4); LYMPHOCYTES % (AUTO) 20 % (22-44); MD NO; MEAN CORPUSCULAR HEMOGLOBIN 30.5 pg (27.0-34.8); MEAN CORPUSCULAR HGB CONC 33.4 g/dL (32.4-35.8); MEAN CORPUSCULAR VOLUME 91.1 fL (80-100); MEAN PLATELET VOLUME 9.4 fL (7.4-10.4); MONOCYTES # (AUTO) 0.66 x10^3/uL (0.2-0.8); MONOCYTES % (AUTO) 7 % (2-9); NEUTROPHILS # (AUTO) 6.62 x10^3/uL (1.8-6.8); NEUTROPHILS % (AUTO) 72 % (42-75); PLATELET COUNT 241 x10^3/uL (130-400); RED BLOOD COUNT 4.53 x10^6/uL (3.82-5.3); RED CELL DISTRIBUTION WIDTH 15.4 % (9.6-15.2)
[2017-09-30 17:55] LABS: INTERNATIONAL NORMALIZED RATIO 2.21 (0.93-1.1); PROTHROMBIN TIME 22.4 Seconds (9.6-11.5)
[2017-09-30 17:58] LABS: ALBUMIN 3.5 g/dL (3.4-5.0); ANION GAP 9 mmol/L (5-15); CALCIUM 8.6 mg/dL (8.5-10.1); CHLORIDE 110 mmol/L (98-107)
[2017-09-30] MEDS ORDERED: OMNIPAQUE 350 MG/ML, 100ML BOTTLE ONE (18:00)
[2017-09-30 18:04] LABS: ALANINE AMINOTRANSFERASE 25 U/L (12-78); ALKALINE PHOSPHATASE 101 U/L (45-117); BILIRUBIN,TOTAL 0.5 mg/dL (0.2-1.0); CREATININE 0.79 mg/dL (0.55-1.02); TOTAL PROTEIN 7.6 g/dL (6.4-8.2); TROPONIN I < 0.015 ng/mL (0.000-0.045)
[2017-09-30] MEDS ORDERED: ONDANSETRON ODT 4 MG PO ONE (20:00)
[2017-09-30] MEDS ORDERED: ONDANSETRON ODT 4 MG ONE (20:17)
[2017-09-30 20:18] VITALS: BP 157/82
== END 2017-09-30 20:20 | disposition home or self-care (01) ==
LOC: ED 17:12
DX: R42 Dizziness and giddiness (principal); G89.29 Other chronic pain; M54.9 Dorsalgia, unspecified; K21.9 Gastro-esophageal reflux disease without esophagitis; I10 Essential (primary) hypertension; R79.1 Abnormal coagulation profile
CPT/HCPCS: 36415; 71045; 71275; 80053; 83880; 84484; 85025; 85610; 85730; 93005; 99285; Q0162; Q9967

== ENCOUNTER 2017-10-26 13:24 | Emergency (ER) | payer OTHER ==
[~2017-10-26] VITALS: Ht 167.6 cm; Wt 101.0 kg
[2017-10-26] MEDS ORDERED: PLEASE ENTER HEIGHT AND WEIGHT MC SCH (13:52)
[2017-10-26] MEDS ORDERED: SODIUM CHLORIDE FLUSH 10ML SYR IVF ONE (14:00)
[2017-10-26 14:03] VITALS: BP 112/66
[2017-10-26 14:25] LABS: CULTURE INDICATED? YES; MICROSCOPIC INDICATED
[2017-10-26] MEDS ORDERED: CROM20SO INH (14:32)
[2017-10-26] MEDS ORDERED: OCTR200V2 SQ (14:34)
[2017-10-26 14:35] LABS: BASOPHILS % (AUTO) 0 % (0-1); EOSINOPHILS # (AUTO) 0.12 x10^3/uL (0-0.4); EOSINOPHILS % (AUTO) 1 % (1-7); LYMPHOCYTES # (AUTO) 1.67 x10^3/uL (1-3.4); LYMPHOCYTES % (AUTO) 19 % (22-44); MD NO; MEAN CORPUSCULAR HEMOGLOBIN 30.7 pg (27.0-34.8); MEAN PLATELET VOLUME 9.1 fL (7.4-10.4); MONOCYTES # (AUTO) 0.57 x10^3/uL (0.2-0.8); MONOCYTES % (AUTO) 7 % (2-9); NEUTROPHILS # (AUTO) 6.34 x10^3/uL (1.8-6.8); NEUTROPHILS % (AUTO) 73 % (42-75); PLATELET COUNT 251 x10^3/uL (130-400); RED BLOOD COUNT 4.19 x10^6/uL (3.82-5.3); RED CELL DISTRIBUTION WIDTH 14.9 % (9.6-15.2)
[2017-10-26] MEDS ORDERED: IPRA3AMP INH (14:35)
[2017-10-26 14:46] LABS: ALANINE AMINOTRANSFERASE 21 U/L (12-78); ALBUMIN 3.2 g/dL (3.4-5.0); ANION GAP 9 mmol/L (5-15); CHLORIDE 110 mmol/L (98-107)
[2017-10-26 14:49] LABS: ALKALINE PHOSPHATASE 77 U/L (45-117); BILIRUBIN,TOTAL 0.3 mg/dL (0.2-1.0); CREATININE 0.97 mg/dL (0.55-1.02); TOTAL PROTEIN 7.1 g/dL (6.4-8.2)
[2017-10-26] MEDS ORDERED: MAGNESIUM CITRATE 300ML ORAL SOL ONE (15:23)
[2017-10-26] MEDS ORDERED: MAGNESIUM CITRATE 300ML ORAL SOL PO ONE (15:30)
== END 2017-10-26 15:48 | disposition home or self-care (01) ==
LOC: ED 14:55
DX: K59.00 Constipation, unspecified (principal); R07.89 Other chest pain; I10 Essential (primary) hypertension; K21.9 Gastro-esophageal reflux disease without esophagitis; Z86.718 Personal history of other venous thrombosis and embolism; Z85.3 Personal history of malignant neoplasm of breast; Z90.49 Acquired absence of other specified parts of digestive tract; Z88.5 Allergy status to narcotic agent; Z88.1 Allergy status to other antibiotic agents
CPT/HCPCS: 36415; 74022; 80053; 81001; 83690; 85025; 87086; 93005; 99285

== ENCOUNTER 2017-11-07 12:59 | Emergency (ER) | payer OTHER ==
[~2017-11-07] VITALS: Ht 167.6 cm; Wt 100.0 kg
[~2017-11-07 12:59] MED LIST changes: +CROM20SO INH; +IPRA3AMP30 INH; +OCTR200V2 SQ; -SPIR25TA3 PO; +SPIR25TA5 PO; +TRAZ-136 PO; +TRAZ-137 PO; -TRAZ100T15 PO; -TRAZ50TA18 PO
[2017-11-07] MEDS ORDERED: ALUMINUM/MAG/SIMETHICONE 30 ML UDC ONE (13:53)
[2017-11-07] MEDS ORDERED: ONDANSETRON ODT 4 MG ONE (13:54)
[2017-11-07] MEDS ORDERED: ALUMINUM/MAG/SIMETHICONE 30 ML UDC PO PRN (14:00)
[2017-11-07] MEDS ORDERED: ONDANSETRON ODT 4 MG PO ONE (14:00)
[2017-11-07 14:02] LABS: BASOPHILS # (AUTO) 0.08 x10^3/uL (0-0.1); BASOPHILS % (AUTO) 1 % (0-1); EOSINOPHILS # (AUTO) 0.06 x10^3/uL (0-0.4); EOSINOPHILS % (AUTO) 0 % (1-7); LYMPHOCYTES # (AUTO) 1.11 x10^3/uL (1-3.4); LYMPHOCYTES % (AUTO) 7 % (22-44); MD NO; MEAN CORPUSCULAR HGB CONC 32.9 g/dL (32.4-35.8); MEAN CORPUSCULAR VOLUME 91.2 fL (80-100); MEAN PLATELET VOLUME 9.1 fL (7.4-10.4); MONOCYTES # (AUTO) 0.58 x10^3/uL (0.2-0.8); MONOCYTES % (AUTO) 4 % (2-9); NEUTROPHILS # (AUTO) 13.44 x10^3/uL (1.8-6.8); NEUTROPHILS % (AUTO) 88 % (42-75); PLATELET COUNT 280 x10^3/uL (130-400); RED BLOOD COUNT 5.05 x10^6/uL (3.82-5.3)
[2017-11-07 14:13] LABS: ANION GAP 10 mmol/L (5-15); CALCIUM 8.8 mg/dL (8.5-10.1); CHLORIDE 108 mmol/L (98-107); CREATININE 1.17 mg/dL (0.55-1.02)
[2017-11-07] MEDS ORDERED: OCTR200V2 SQ (14:53)
[2017-11-07] MEDS ORDERED: ACET-1600 PO (14:53)
[2017-11-07 14:57] LABS: CLOSTRIDIUM DIFFICILE ANTIGEN NEGATIVE; CLOSTRIDIUM DIFFICILE TOXIN NEGATIVE (Negative)
[2017-11-07 15:48] VITALS: BP 106/61
== END 2017-11-07 15:49 | disposition home or self-care (01) ==
LOC: ED 15:38
DX: R19.7 Diarrhea, unspecified (principal); E86.0 Dehydration; R11.0 Nausea; I10 Essential (primary) hypertension; K21.9 Gastro-esophageal reflux disease without esophagitis; Z86.718 Personal history of other venous thrombosis and embolism; Z95.5 Presence of coronary angioplasty implant and graft
CPT/HCPCS: 36415; 80048; 85025; 87324; 99284; Q0162

== ENCOUNTER 2017-11-27 19:17 | Emergency (ER) | payer OTHER ==
[~2017-11-27] VITALS: Ht 167.6 cm; Wt 99.0 kg
[~2017-11-27 19:17] MED LIST changes: +ACET-1600 PO
[2017-11-27 20:11] LABS: BASOPHILS # (AUTO) 0.01 x10^3/uL (0-0.1); BASOPHILS % (AUTO) 0 % (0-1); EOSINOPHILS # (AUTO) 0.05 x10^3/uL (0-0.4); EOSINOPHILS % (AUTO) 0 % (1-7); LYMPHOCYTES # (AUTO) 1.95 x10^3/uL (1-3.4); LYMPHOCYTES % (AUTO) 17 % (22-44); MD NO; MEAN CORPUSCULAR HEMOGLOBIN 30.2 pg (27.0-34.8); MEAN CORPUSCULAR HGB CONC 33.3 g/dL (32.4-35.8); MEAN CORPUSCULAR VOLUME 90.7 fL (80-100); MEAN PLATELET VOLUME 9.2 fL (7.4-10.4); MONOCYTES # (AUTO) 0.58 x10^3/uL (0.2-0.8); MONOCYTES % (AUTO) 5 % (2-9); NEUTROPHILS # (AUTO) 8.81 x10^3/uL (1.8-6.8); NEUTROPHILS % (AUTO) 77 % (42-75); PLATELET COUNT 248 x10^3/uL (130-400); RED BLOOD COUNT 4.46 x10^6/uL (3.82-5.3); RED CELL DISTRIBUTION WIDTH 14.7 % (9.6-15.2)
[2017-11-27 20:17] LABS: INTERNATIONAL NORMALIZED RATIO 2.88 (0.93-1.1); PROTHROMBIN TIME 29.1 Seconds (9.6-11.5)
[2017-11-27 20:18] LABS: ALANINE AMINOTRANSFERASE 22 U/L (12-78); ALBUMIN 3.6 g/dL (3.4-5.0); ANION GAP 9 mmol/L (5-15); CALCIUM 8.1 mg/dL (8.5-10.1); CHLORIDE 108 mmol/L (98-107); CREATININE 0.72 mg/dL (0.55-1.02)
[2017-11-27 20:23] LABS: ALKALINE PHOSPHATASE 84 U/L (45-117); BILIRUBIN,TOTAL 0.4 mg/dL (0.2-1.0); TOTAL PROTEIN 7.4 g/dL (6.4-8.2); TROPONIN I < 0.015 ng/mL (0.000-0.045)
[2017-11-27 21:08] VITALS: BP 158/87
== END 2017-11-27 21:29 | disposition home or self-care (01) ==
LOC: ED 20:28
DX: R07.2 Precordial pain (principal); I10 Essential (primary) hypertension; G89.29 Other chronic pain; Z86.718 Personal history of other venous thrombosis and embolism; K21.9 Gastro-esophageal reflux disease without esophagitis; J45.909 Unspecified asthma, uncomplicated
CPT/HCPCS: 36415; 71045; 80053; 84484; 85025; 85610; 85730; 93005; 99285

== ENCOUNTER → 2017-11-29 | Outpatient (CLI) | payer OTHER ==
[~2017-11-29] MED LIST changes: +GADOBUTROL 10 MMOL/10 ML VIAL ONE
== END | disposition home or self-care (01) ==
LOC: CFH 06:48
PROVIDERS: ATTEND Internal Medicine Endocrinology, Diabetes & Metabolism
DX: N28.1 Cyst of kidney, acquired (principal); K76.89 Other specified diseases of liver; R59.0 Localized enlarged lymph nodes; E24.9 Cushing's syndrome, unspecified; C68.0 Malignant neoplasm of urethra
CPT/HCPCS: 74183; A9585

== ENCOUNTER 2018-01-08 10:21 | Emergency (ER) | payer OTHER ==
[~2018-01-08] VITALS: Ht 167.6 cm; Wt 95.8 kg
[~2018-01-08 10:21] MED LIST changes: -AMLO5TAB2 PO; +AMLO5TAB7 PO; +GABA100C PO; -GADOBUTROL 10 MMOL/10 ML VIAL ONE; +HYDR-3343 PO; +HYDR-3653; +HYDR-3653 PO; -HYDR-882; -HYDR-882 PO; +LANS15CA5 PO; -LOSA50TA6 PO; +LOSA50TA7 PO; +OCTR200V2 IM/IV; +OCTR30VI3 IM/IV
[2018-01-08 11:52] LABS: BASOPHILS # (AUTO) 0.07 x10^3/uL (0-0.1); BASOPHILS % (AUTO) 1 % (0-1); EOSINOPHILS # (AUTO) 0.04 x10^3/uL (0-0.4); EOSINOPHILS % (AUTO) 0 % (1-7); LYMPHOCYTES # (AUTO) 1.72 x10^3/uL (1-3.4); LYMPHOCYTES % (AUTO) 15 % (22-44); MD NO; MEAN CORPUSCULAR HEMOGLOBIN 30.3 pg (27.0-34.8); MEAN CORPUSCULAR HGB CONC 32.8 g/dL (32.4-35.8); MEAN CORPUSCULAR VOLUME 92.2 fL (80-100); MONOCYTES # (AUTO) 0.66 x10^3/uL (0.2-0.8); MONOCYTES % (AUTO) 6 % (2-9); NEUTROPHILS # (AUTO) 8.96 x10^3/uL (1.8-6.8); NEUTROPHILS % (AUTO) 78 % (42-75); PLATELET COUNT 441 x10^3/uL (130-400); RED BLOOD COUNT 4.08 x10^6/uL (3.82-5.3); RED CELL DISTRIBUTION WIDTH 15.4 % (9.6-15.2)
[2018-01-08 12:03] LABS: ALBUMIN 3.3 g/dL (3.4-5.0); ANION GAP 6 mmol/L (5-15); CALCIUM 8.7 mg/dL (8.5-10.1); CHLORIDE 108 mmol/L (98-107); CREATININE 0.73 mg/dL (0.55-1.02)
[2018-01-08 12:12] VITALS: BP 117/66
[2018-01-08 12:33] LABS: CULTURE INDICATED? NO; MICROSCOPIC NOT IND
[2018-01-08] MEDS ORDERED: ACETAMINOPHEN 500 MG TABLET ONE (12:56)
[2018-01-08] MEDS ORDERED: ACETAMINOPHEN 500 MG TABLET PO ONE (13:30)
== END 2018-01-08 12:59 | disposition home or self-care (01) ==
LOC: ED 12:34
DX: R10.84 Generalized abdominal pain (principal); K21.9 Gastro-esophageal reflux disease without esophagitis; J45.909 Unspecified asthma, uncomplicated; E07.9 Disorder of thyroid, unspecified; I10 Essential (primary) hypertension; C50.919 Malignant neoplasm of unspecified site of unspecified female breast; Z90.49 Acquired absence of other specified parts of digestive tract; Z86.718 Personal history of other venous thrombosis and embolism
CPT/HCPCS: 36415; 80048; 81003; 82040; 85025; 99284

== ENCOUNTER 2018-01-29 19:14 | Emergency (ER) | payer OTHER ==
[~2018-01-29] VITALS: Ht 167.6 cm; Wt 95.8 kg
[2018-01-29 19:16] VITALS: BP 139/76
[2018-01-29] MEDS ORDERED: ALBUTEROL SULFATE 2.5 MG/3 ML ONE (19:49)
[2018-01-29 19:58] LABS: BASOPHILS # (AUTO) 0.09 x10^3/uL (0-0.1); BASOPHILS % (AUTO) 1 % (0-1); EOSINOPHILS % (AUTO) 1 % (1-7); LYMPHOCYTES # (AUTO) 2.24 x10^3/uL (1-3.4); LYMPHOCYTES % (AUTO) 20 % (22-44); MD NO; MEAN CORPUSCULAR HEMOGLOBIN 30.3 pg (27.0-34.8); MEAN CORPUSCULAR HGB CONC 32.8 g/dL (32.4-35.8); MEAN CORPUSCULAR VOLUME 92.4 fL (80-100); MEAN PLATELET VOLUME 9.1 fL (7.4-10.4); MONOCYTES # (AUTO) 0.74 x10^3/uL (0.2-0.8); MONOCYTES % (AUTO) 7 % (2-9); NEUTROPHILS # (AUTO) 7.82 x10^3/uL (1.8-6.8); NEUTROPHILS % (AUTO) 71 % (42-75); PLATELET COUNT 268 x10^3/uL (130-400); RED BLOOD COUNT 4.04 x10^6/uL (3.82-5.3); RED CELL DISTRIBUTION WIDTH 15.1 % (9.6-15.2)
[2018-01-29] MEDS ORDERED: ALBUTEROL SULFATE 2.5 MG/3 ML NPPB ONE (20:00)
[2018-01-29 20:06] LABS: ALBUMIN 3.5 g/dL (3.4-5.0); ANION GAP 9 mmol/L (5-15); CALCIUM 8.5 mg/dL (8.5-10.1); CHLORIDE 108 mmol/L (98-107); CREATININE 0.78 mg/dL (0.55-1.02)
[2018-01-29 20:10] LABS: TROPONIN I < 0.015 ng/mL (0.000-0.045)
[2018-01-29 20:25] LABS: INTERNATIONAL NORMALIZED RATIO 2.42 (0.93-1.1); PROTHROMBIN TIME 24.5 Seconds (9.6-11.5)
== END 2018-01-29 21:10 | disposition home or self-care (01) ==
LOC: ED 21:00
DX: R07.2 Precordial pain (principal); R06.00 Dyspnea, unspecified; I10 Essential (primary) hypertension; M54.9 Dorsalgia, unspecified; G89.29 Other chronic pain; K21.9 Gastro-esophageal reflux disease without esophagitis; Z86.718 Personal history of other venous thrombosis and embolism; Z85.3 Personal history of malignant neoplasm of breast
CPT/HCPCS: 36415; 71045; 80048; 82040; 84484; 85025; 85610; 85730; 93005; 94640; 99285; J7613

== ENCOUNTER 2018-03-13 17:38 | Emergency (ER) | payer OTHER ==
[~2018-03-13] VITALS: Ht 167.6 cm; Wt 100.0 kg
[~2018-03-13 17:38] MED LIST changes: +AMLO-150 PO; -AMLO5TAB7 PO; -TRAZ-136 PO; +TRAZ50TA66 PO
[2018-03-13 17:48] VITALS: BP 157/85
[2018-03-13] MEDS ORDERED: ASPIRIN 81 MG TABLET CHEW PO ONE (18:00)
[2018-03-13 18:25] LABS: BASOPHILS # (AUTO) 0.06 x10^3/uL (0-0.1); BASOPHILS % (AUTO) 1 % (0-1); EOSINOPHILS # (AUTO) 0.07 x10^3/uL (0-0.4); EOSINOPHILS % (AUTO) 1 % (1-7); LYMPHOCYTES # (AUTO) 2.17 x10^3/uL (1-3.4); LYMPHOCYTES % (AUTO) 23 % (22-44); MD NO; MEAN CORPUSCULAR HGB CONC 33.1 g/dL (32.4-35.8); MEAN CORPUSCULAR VOLUME 90.5 fL (80-100); MEAN PLATELET VOLUME 9.1 fL (7.4-10.4); MONOCYTES # (AUTO) 0.64 x10^3/uL (0.2-0.8); MONOCYTES % (AUTO) 7 % (2-9); NEUTROPHILS # (AUTO) 6.55 x10^3/uL (1.8-6.8); NEUTROPHILS % (AUTO) 69 % (42-75); PLATELET COUNT 282 x10^3/uL (130-400); RED BLOOD COUNT 4.42 x10^6/uL (3.82-5.3); RED CELL DISTRIBUTION WIDTH 14.4 % (9.6-15.2)
[2018-03-13 18:31] LABS: ALBUMIN 3.6 g/dL (3.4-5.0); ANION GAP 7 mmol/L (5-15); CALCIUM 8.3 mg/dL (8.5-10.1); CHLORIDE 108 mmol/L (98-107); CREATININE 0.76 mg/dL (0.55-1.02)
[2018-03-13 18:35] LABS: TROPONIN I < 0.015 ng/mL (0.000-0.045)
[2018-03-13 19:31] LABS: INTERNATIONAL NORMALIZED RATIO 2.48 (0.93-1.1); PROTHROMBIN TIME 25.4 Seconds (9.6-11.5)
== END 2018-03-13 19:27 | disposition home or self-care (01) ==
LOC: ED 18:44
DX: R06.00 Dyspnea, unspecified (principal); J00 Acute nasopharyngitis [common cold]; H57.13 Ocular pain, bilateral; I10 Essential (primary) hypertension; J45.909 Unspecified asthma, uncomplicated; K21.9 Gastro-esophageal reflux disease without esophagitis; Z85.3 Personal history of malignant neoplasm of breast
CPT/HCPCS: 36415; 71046; 80048; 82040; 83880; 84484; 85025; 85610; 93005; 99284

== ENCOUNTER 2018-04-13 19:31 | Emergency (ER) | payer OTHER ==
[~2018-04-13] VITALS: Ht 167.6 cm; Wt 96.5 kg
[~2018-04-13 19:31] MED LIST changes: +SERT50TA28 PO; -SERT50TA5 PO
[2018-04-13] MEDS ORDERED: MAALOX/HYOSCYAMINE/LIDOCAINE 45 ML BTL PO ONE (20:30)
[2018-04-13] MEDS ORDERED: MAALOX/HYOSCYAMINE/LIDOCAINE 45 ML BTL ONE (20:33)
[2018-04-13 21:10] VITALS: BP 137/72
--- NOTE | 2018-04-13 21:10 | NUR ---
PT REPORTS THAT SHE IS FEELING BETTER AT THIS TIME AFTER GI COCKTAIL
== END 2018-04-13 21:35 | disposition home or self-care (01) ==
LOC: ED 20:29
DX: R07.89 Other chest pain (principal); K21.9 Gastro-esophageal reflux disease without esophagitis; M54.9 Dorsalgia, unspecified; G89.29 Other chronic pain; J45.909 Unspecified asthma, uncomplicated
CPT/HCPCS: 71046; 93005; 99283

== ENCOUNTER 2018-04-19 14:13 | Emergency (ER) | payer OTHER ==
[~2018-04-19] VITALS: Ht 167.6 cm; Wt 96.0 kg
[~2018-04-19 14:13] MED LIST changes: +LOSA50TA14 PO; -LOSA50TA7 PO
[2018-04-19] MEDS ORDERED: NITROGLYCERIN SINGLE TAB 0.4 MG SL PRN (14:30)
[2018-04-19] MEDS ORDERED: ASPIRIN 81 MG TABLET CHEW PO ONE (14:30)
[2018-04-19] MEDS ORDERED: MORPHINE SULFATE 4 MG/ML, 1ML IVPush PRN (14:30)
[2018-04-19] MEDS ORDERED: ASPIRIN 81 MG TABLET CHEW ONE (14:43)
--- NOTE | 2018-04-19 14:44 | NUR ---
PT TAKEN TO X RAY.
--- NOTE | 2018-04-19 14:44 | NUR ---
PT BIB [facility] FOR CHEST DISCOMFORT. PT REPORTS HAVING STERNAL CP THAT FEELS LIKE PRESSURE THAT GETS WORSE WITH MOVING. NOTHING MAKES IT BETTER. REPORTS HAVING A COUGH AND LOW GRADE FEVER. HISTORY OF PE AND BREAST CA. PT IS ALERT, ORIENTED, WITH NAD. BP: 157/83, HR 70, O2 sAT 98%.
[2018-04-19 14:46] LABS: BASOPHILS # (AUTO) 0.03 x10^3/uL (0-0.1); BASOPHILS % (AUTO) 0 % (0-1); EOSINOPHILS # (AUTO) 0.09 x10^3/uL (0-0.4); EOSINOPHILS % (AUTO) 1 % (1-7); LYMPHOCYTES % (AUTO) 19 % (22-44); MD NO; MEAN CORPUSCULAR HEMOGLOBIN 29.5 pg (27.0-34.8); MEAN CORPUSCULAR HGB CONC 33.1 g/dL (32.4-35.8); MEAN CORPUSCULAR VOLUME 89.1 fL (80-100); MEAN PLATELET VOLUME 8.8 fL (7.4-10.4); MONOCYTES % (AUTO) 7 % (2-9); NEUTROPHILS % (AUTO) 73 % (42-75); PLATELET COUNT 271 x10^3/uL (130-400); RED BLOOD COUNT 4.65 x10^6/uL (3.82-5.3); RED CELL DISTRIBUTION WIDTH 15.1 % (9.6-15.2)
[2018-04-19] MEDS ORDERED: NITROGLYCERIN SINGLE TAB 0.4 MG SL ONE (14:49)
[2018-04-19] MEDS ORDERED: MORPHINE SULFATE 4 MG/ML, 1ML ONE (14:50)
[2018-04-19 14:57] LABS: INTERNATIONAL NORMALIZED RATIO 2.32 (0.93-1.1); PROTHROMBIN TIME 23.8 Seconds (9.6-11.5)
--- NOTE | 2018-04-19 14:57 | NUR ---
PT AMBULATED TO THE BATHROOM WITH CANE WITH STEADY GAIT.
[2018-04-19 14:58] LABS: ALANINE AMINOTRANSFERASE 20 U/L (12-78); ALBUMIN 3.5 g/dL (3.4-5.0); ANION GAP 7 mmol/L (5-15); CALCIUM 8.8 mg/dL (8.5-10.1); CHLORIDE 106 mmol/L (98-107); CREATININE 0.78 mg/dL (0.55-1.02)
[2018-04-19 15:02] LABS: ALKALINE PHOSPHATASE 103 U/L (45-117); BILIRUBIN,TOTAL 0.2 mg/dL (0.2-1.0); TOTAL PROTEIN 8.1 g/dL (6.4-8.2); TROPONIN I < 0.015 ng/mL (0.000-0.045)
--- NOTE | 2018-04-19 15:11 | NUR ---
PT MEDICATED PER ORDER.
--- NOTE | 2018-04-19 15:15 | NUR ---
PT REPORTS CP A 7 ON PAIN SCALE AFTER BEING MEDICATED PT REPORTS CP A 4 ON THE PAIN SCALE.
--- NOTE | 2018-04-19 16:12 | NUR ---
PT IS RESTING IN BED, TALKING WITH STAFF. RESPIRATIONS EQUAL AND NON LABORED. NAD. PT IS CONNECTED TO THE MONITOR. CALL LIGHT WITHIN REACH.
[2018-04-19 16:34] LABS: TROPONIN I < 0.015 ng/mL (0.000-0.045)
[2018-04-19 17:16] VITALS: BP 123/66
--- NOTE | 2018-04-19 17:16 | NUR ---
PT IS RESTING IN BED. RESPIRATIONS EQUAL AND NON LABORED. NAD. PT IS CONNECTED TO THE MONITOR. CALL LIGHT WITHIN REACH.
--- NOTE | 2018-04-19 17:40 | NUR ---
EKG AT BEDSIDE.
--- NOTE | 2018-04-19 18:16 | NUR ---
Patient given discharge instructions and they have confirmed that they understand the instructions. Patient ambulatory with steady gait.
== END 2018-04-19 18:29 | disposition home or self-care (01) ==
LOC: ED 14:41
DX: R07.89 Other chest pain (principal)
CPT/HCPCS: 36415; 71046; 80053; 83880; 84484; 85025; 85610; 85730; 93005; 96374

== ENCOUNTER → 2018-05-10 | Outpatient (CLI) | payer OTHER | END | disposition home or self-care (01) | LOC: CFH 12:20 | PROVIDERS: ATTEND Radiology Radiation Oncology | DX: N63.10 Unspecified lump in the right breast, unspecified quadrant (principal); N64.4 Mastodynia; Z85.3 Personal history of malignant neoplasm of breast | CPT/HCPCS: 76642; 77066; G0279 ==

== ENCOUNTER → 2018-06-12 | Outpatient (CLI) | payer OTHER | END | disposition home or self-care (01) | LOC: ROC 08:21 | PROVIDERS: ATTEND Radiology Radiation Oncology | DX: Z08 Encounter for follow-up examination after completed treatment for malignant neoplasm (principal); Z79.01 Long term (current) use of anticoagulants; Z17.0 Estrogen receptor positive status [ER+]; Z85.3 Personal history of malignant neoplasm of breast; Z91.048 Other nonmedicinal substance allergy status | CPT/HCPCS: 99213; G0463 ==

== ENCOUNTER 2018-07-03 19:27 | Observation (INO) | payer OTHER ==
[~2018-07-03] VITALS: Ht 167.6 cm; Wt 96.9 kg
--- NOTE | 2018-07-03 19:44 | NUR ---
assessement made. seen by ERP.
[2018-07-03] MEDS ORDERED: MORPHINE SULFATE 4 MG/ML, 1ML IVPush PRN (20:00)
[2018-07-03 20:14] LABS: BASOPHILS # (AUTO) 0.07 x10^3/uL (0-0.1); BASOPHILS % (AUTO) 1 % (0-1); EOSINOPHILS # (AUTO) 0.13 x10^3/uL (0-0.4); EOSINOPHILS % (AUTO) 2 % (1-7); LYMPHOCYTES % (AUTO) 24 % (22-44); MD NO; MEAN CORPUSCULAR HGB CONC 33.3 g/dL (32.4-35.8); MEAN CORPUSCULAR VOLUME 90.3 fL (80-100); MEAN PLATELET VOLUME 8.7 fL (7.4-10.4); MONOCYTES % (AUTO) 7 % (2-9); NEUTROPHILS # (AUTO) 5.73 x10^3/uL (1.8-6.8); NEUTROPHILS % (AUTO) 67 % (42-75); PLATELET COUNT 250 x10^3/uL (130-400); RED BLOOD COUNT 4.37 x10^6/uL (3.82-5.3); RED CELL DISTRIBUTION WIDTH 16.7 % (9.6-15.2)
[2018-07-03 20:24] LABS: ALBUMIN 3.3 g/dL (3.4-5.0); ANION GAP 7 mmol/L (5-15); CALCIUM 8.4 mg/dL (8.5-10.1); CHLORIDE 109 mmol/L (98-107); CREATININE 0.78 mg/dL (0.55-1.02)
[2018-07-03 20:27] LABS: TROPONIN I < 0.015 ng/mL (0.000-0.045)
[2018-07-03] MEDS ORDERED: MORPHINE SULFATE 4 MG/ML, 1ML ONE (20:28)
--- NOTE | 2018-07-03 20:33 | NUR ---
Pt to ct scan, will medicate when back to room
--- NOTE | 2018-07-03 20:51 | NUR ---
Back from CT, medicated per mar, denies needs/concerns.
[2018-07-03 21:54] LABS: INTERNATIONAL NORMALIZED RATIO 3.27 (0.93-1.1); PROTHROMBIN TIME 32.8 Seconds (9.6-11.5)
--- NOTE | 2018-07-03 22:20 | NUR ---
Pt reports 2/10 pain after morphine administration
--- NOTE | 2018-07-03 22:20 | NUR ---
Report to [facility], pt ready for transport.
[2018-07-03 23:01] VITALS: BP 138/82
[2018-07-04] MEDS ORDERED: LABETALOL 5MG/ML, 20ML IVPush PRN
[2018-07-04] MEDS ORDERED: ACETAMINOPHEN 325 MG TABLET PO PRN
[2018-07-04] MEDS ORDERED: LIDODERM 5% PATCH TD PRN
[2018-07-04] MEDS ORDERED: PANTOPRAZOLE 20MG TABLET PO PRN
[2018-07-04] MEDS ORDERED: ONDANSETRON 2MG/ML, 2ML IVPush PRN
[2018-07-04] MEDS ORDERED: BISACODYL 10 MG SUPP PR PRN
[2018-07-04] MEDS ORDERED: LOSARTAN 50MG TABLET PO SCH
[2018-07-04] MEDS ORDERED: TRAZODONE 50MG TABLET PO PRN
[2018-07-04 01:13] VITALS: BP 135/82
[2018-07-04 02:18] LABS: INTERNATIONAL NORMALIZED RATIO 2.91 (0.93-1.1); PROTHROMBIN TIME 29.3 Seconds (9.6-11.5)
[2018-07-04 02:25] LABS: FREE T4 (FREE THYROXINE) 1.31 ng/dL (0.76-1.46); TROPONIN I < 0.015 ng/mL (0.000-0.045)
[2018-07-04 02:31] LABS: THYROID STIMULATING HORMONE 0.526 mIU/L (0.358-3.740)
[2018-07-04] MEDS ORDERED: OMNIPAQUE 350 MG/ML, 100ML BOTTLE ONE (05:09)
[2018-07-04] MEDS ORDERED: LEVOTHYROXINE 200 MCG TABLET PO SCH (06:00)
[2018-07-04 07:05] VITALS: BP 112/66
[2018-07-04] MEDS ORDERED: REGADENOSON 0.4 MG/5 ML SYRINGE ONE (08:53)
[2018-07-04] MEDS ORDERED: FAMCICLOVIR 500 MG TABLET PO SCH (09:00)
[2018-07-04 09:23] LABS: BASOPHILS # (AUTO) 0.03 x10^3/uL (0-0.1); BASOPHILS % (AUTO) 1 % (0-1); EOSINOPHILS # (AUTO) 0.12 x10^3/uL (0-0.4); EOSINOPHILS % (AUTO) 2 % (1-7); LYMPHOCYTES # (AUTO) 1.38 x10^3/uL (1-3.4); LYMPHOCYTES % (AUTO) 22 % (22-44); MD NO; MEAN CORPUSCULAR HEMOGLOBIN 29.2 pg (27.0-34.8); MEAN CORPUSCULAR HGB CONC 32.3 g/dL (32.4-35.8); MEAN CORPUSCULAR VOLUME 90.5 fL (80-100); MEAN PLATELET VOLUME 8.9 fL (7.4-10.4); MONOCYTES # (AUTO) 0.51 x10^3/uL (0.2-0.8); MONOCYTES % (AUTO) 8 % (2-9); NEUTROPHILS # (AUTO) 4.16 x10^3/uL (1.8-6.8); NEUTROPHILS % (AUTO) 67 % (42-75); PLATELET COUNT 218 x10^3/uL (130-400); RED BLOOD COUNT 4.18 x10^6/uL (3.82-5.3)
[2018-07-04 09:30] LABS: ANION GAP 5 mmol/L (5-15); CALCIUM 8.3 mg/dL (8.5-10.1); CHLORIDE 109 mmol/L (98-107)
[2018-07-04 09:38] LABS: TROPONIN I < 0.015 ng/mL (0.000-0.045)
[2018-07-04 13:50] VITALS: BP 117/69
[2018-07-04 14:34] LABS: CHOL/HDL RATIO 4.4; LDL/HDL RATIO 2.8 (0.5-3.0)
[2018-07-04 14:38] LABS: HEMOGLOBIN A1C 6.4 % (4.2-6.3)
[2018-07-04] MEDS ORDERED: ATOR40TA78 PO (16:45)
[2018-07-04] MEDS ORDERED: WARFARIN 2 MG TABLET PO-COUM ONE (18:00)
[2018-07-04] MEDS ORDERED: WARFARIN 5 MG TABLET PO-COUM SCH (18:00)
[2018-07-04] MEDS ORDERED: ATORVASTATIN 40 MG TABLET PO SCH (21:00)
== END 2018-07-04 18:48 | disposition home or self-care (01) ==
LOC: ED 20:52 → EDIP 21:39 → INTOOBSV 21:39 → 5SO 22:58
PROVIDERS: ADMIT Internal Medicine; ATTEND Internal Medicine
DX: R07.9 Chest pain, unspecified (principal); E03.9 Hypothyroidism, unspecified; E66.9 Obesity, unspecified; G47.33 Obstructive sleep apnea (adult) (pediatric); I11.9 Hypertensive heart disease without heart failure; J45.909 Unspecified asthma, uncomplicated; G62.9 Polyneuropathy, unspecified; E55.9 Vitamin D deficiency, unspecified; K21.9 Gastro-esophageal reflux disease without esophagitis; R79.1 Abnormal coagulation profile; Z79.01 Long term (current) use of anticoagulants; Z82.49 Family history of ischemic heart disease and other diseases of the circulatory system; Z85.3 Personal history of malignant neoplasm of breast; Z83.3 Family history of diabetes mellitus; Z86.711 Personal history of pulmonary embolism; Z98.42 Cataract extraction status, left eye; Z98.41 Cataract extraction status, right eye; E89.0 Postprocedural hypothyroidism
CPT/HCPCS: 36415; 71045; 71275; 78452; 80048; 80061; 82040; 83036; 83880; 84439; 84443; 84484; 85025; 85610; 93005; 93017; 93306; 96374; 99285; A9502; C9898; G0378; J2785; Q9967

== ENCOUNTER 2018-09-11 17:19 | Emergency (ER) | payer OTHER ==
[~2018-09-11] VITALS: Ht 167.6 cm; Wt 98.2 kg
[~2018-09-11 17:19] MED LIST changes: +ATOR40TA78 PO
[2018-09-11 18:02] LABS: INTERNATIONAL NORMALIZED RATIO 2.47 (0.93-1.1)
[2018-09-11 18:04] LABS: ALANINE AMINOTRANSFERASE 18 U/L (12-78); ALBUMIN 3.5 g/dL (3.4-5.0); ANION GAP 4 mmol/L (5-15); CALCIUM 8.4 mg/dL (8.5-10.1); CHLORIDE 109 mmol/L (98-107)
[2018-09-11 18:07] LABS: ALKALINE PHOSPHATASE 117 U/L (45-117); BILIRUBIN,TOTAL 0.4 mg/dL (0.2-1.0); CREATININE 0.88 mg/dL (0.55-1.02)
--- NOTE | 2018-09-11 18:18 | NUR ---
[facility]
[2018-09-11] MEDS ORDERED: OCTREOTIDE (18:30)
[2018-09-11] MEDS ORDERED: SANDOSTATIN (18:30)
--- NOTE | 2018-09-11 18:36 | NUR ---
pt to ed for generalized abd pain with sharp intermittent pains to right abd starting this am. pt states "tumors are larger on right side." pt connected to monitors. vss. edmd to bs. awaiting further orders.
[2018-09-11] MEDS ORDERED: ONDANSETRON 2MG/ML, 2ML IVPush ONE (19:00)
[2018-09-11] MEDS ORDERED: MORPHINE SULFATE 4 MG/ML, 1ML IVPush PRN (19:00)
[2018-09-11] MEDS ORDERED: ONDANSETRON 2MG/ML, 2ML ONE (19:32)
[2018-09-11] MEDS ORDERED: MORPHINE SULFATE 4 MG/ML, 1ML ONE (19:32)
[2018-09-11 19:34] LABS: BASOPHILS # (AUTO) 0.07 x10^3/uL (0-0.1); BASOPHILS % (AUTO) 1 % (0-1); EOSINOPHILS % (AUTO) 1 % (1-7); LYMPHOCYTES # (AUTO) 2.38 x10^3/uL (1-3.4); LYMPHOCYTES % (AUTO) 27 % (22-44); MD NO; MEAN CORPUSCULAR HEMOGLOBIN 29.4 pg (27.0-34.8); MEAN CORPUSCULAR HGB CONC 31.6 g/dL (32.4-35.8); MEAN CORPUSCULAR VOLUME 92.9 fL (80-100); MEAN PLATELET VOLUME 8.9 fL (7.4-10.4); MONOCYTES # (AUTO) 0.71 x10^3/uL (0.2-0.8); MONOCYTES % (AUTO) 8 % (2-9); NEUTROPHILS # (AUTO) 5.63 x10^3/uL (1.8-6.8); NEUTROPHILS % (AUTO) 63 % (42-75); PLATELET COUNT 266 x10^3/uL (130-400); RED BLOOD COUNT 4.69 x10^6/uL (3.82-5.3); RED CELL DISTRIBUTION WIDTH 14.5 % (9.6-15.2)
--- NOTE | 2018-09-11 20:19 | NUR ---
pt back from ct. vss. call light within reach. no needs expressed. awaiting results.
[2018-09-11] MEDS ORDERED: OMNIPAQUE 350 MG/ML, 100ML BOTTLE ONE (20:22)
--- NOTE | 2018-09-11 21:36 | NUR ---
pt resting in room. vss. call light within reach. no needs expressed. ua sent. awaiting results.
[2018-09-11 21:50] LABS: MICROSCOPIC AUTO
[2018-09-11 21:52] LABS: CULTURE INDICATED? YES
--- NOTE | 2018-09-11 22:40 | NUR ---
patient discharged with instruction. verbalized understanding.
[2018-09-11 22:41] VITALS: BP 128/69
== END 2018-09-11 22:42 | disposition home or self-care (01) ==
LOC: ED 20:01
DX: M16.11 Unilateral primary osteoarthritis, right hip (principal); G89.29 Other chronic pain; R10.11 Right upper quadrant pain; I10 Essential (primary) hypertension; J45.909 Unspecified asthma, uncomplicated
CPT/HCPCS: 36415; 74177; 80053; 81001; 85025; 85610; 87086; 96374; 96375; 99284; J2270; J2405; Q9967

== ENCOUNTER → 2018-09-21 | Outpatient (CLI) | payer OTHER ==
[~2018-09-21] MED LIST changes: +LOSA100T14 PO; +OCTR50AM SQ; +OCTREOTIDE; +SANDOSTATIN
== END | disposition home or self-care (01) ==
LOC: STAR 07:52
PROVIDERS: ATTEND Orthopaedic Surgery
DX: Z01.818 Encounter for other preprocedural examination (principal); M25.551 Pain in right hip; Z96.641 Presence of right artificial hip joint
CPT/HCPCS: 87081; 87147; 93005

== ENCOUNTER 2018-09-25 10:02 | Inpatient (IN) | payer OTHER ==
[~2018-09-25] VITALS: Ht 167.6 cm; Wt 101.4 kg
[~2018-09-25 10:02] MED LIST changes: +EPINEPHRINE 1 MG/ML, 1ML ONE; +KETOROLAC 60 MG/2 ML ONE; -OCTR50AM SQ; +ROPIvacaine/PF 0.2%, 20 ML ONE; +SODIUM CHLORIDE 0.9% 0 ML ONE; +TRANEXAMIC ACID 100 MG/ML, 10ML ONE
[2018-09-25] MEDS ORDERED: ROPIvacaine/PF 0.2%, 20 ML ONE (10:12)
[2018-09-25] MEDS ORDERED: TRANEXAMIC ACID 100 MG/ML, 10ML ONE (10:12)
[2018-09-25] MEDS ORDERED: KETOROLAC 60 MG/2 ML ONE (10:12)
[2018-09-25] MEDS ORDERED: EPINEPHRINE 1 MG/ML, 1ML ONE (10:13)
[2018-09-25] MEDS ORDERED: SODIUM CHLORIDE 0.9% 50 ML ONE (10:13)
[2018-09-25] MEDS ORDERED: LACTATED RINGERS 1,000 ML IV SCH (10:38)
[2018-09-25] MEDS ORDERED: ACETAMINOPHEN 500 MG TABLET PO ONE (11:00)
[2018-09-25] MEDS ORDERED: OCTREOTIDE 500 MCG/ML, 1ML (0.5MG/ML) IV ONE (11:00)
[2018-09-25] MEDS ORDERED: OxyconTIN ER 10 MG TAB.ER PO ONE (11:00)
[2018-09-25] MEDS ORDERED: FAMOTIDINE 20 MG TABLET PO ONE (11:00)
[2018-09-25] MEDS ORDERED: GABAPENTIN 300 MG CAPSULE PO ONE (11:00)
[2018-09-25] MEDS ORDERED: OCTREOTIDE 500 MCG in SODIUM CHLORIDE 0.9% 249 ML IV SCH (11:00)
[2018-09-25] MEDS ORDERED: MIDAZOLAM 1 MG/ML, 2ML ONE (11:26)
[2018-09-25 11:27] LABS: INTERNATIONAL NORMALIZED RATIO 1.02 (0.93-1.1); PROTHROMBIN TIME 10.7 Seconds (9.6-11.5)
[2018-09-25] MEDS ORDERED: FENTANYL PF 250 MCG/5ML ONE ×2 (11:27→13:37)
[2018-09-25 11:30] VITALS: BP 125/79
[2018-09-25] MEDS ORDERED: OCTR50AM SQ (11:42)
[2018-09-25] MEDS ORDERED: OCTR200V2 SQ (11:42)
[2018-09-25] MEDS ORDERED: ENOX40SY4 SQ (11:43)
[2018-09-25] MEDS ORDERED: METOCLOPRAMIDE 5 MG/ML, 2ML ONE (13:00)
[2018-09-25] MEDS ORDERED: EPHEDRINE 50 MG/ML, 1ML ONE (13:00)
[2018-09-25] MEDS ORDERED: METOPROLOL 1 MG/ML, 5ML ONE (13:40)
[2018-09-25] MEDS ORDERED: GLYCOPYRROLATE 0.2MG/1ML, 5ML ONE (14:29)
[2018-09-25] MEDS ORDERED: CEFAZOLIN 1,000 MG ONE (14:29)
[2018-09-25] MEDS ORDERED: PROPOFOL 10 MG/ML, 20ML ONE (14:29)
[2018-09-25] MEDS ORDERED: ROCURONIUM 10MG/ML,5ML ONE (14:29)
[2018-09-25] MEDS ORDERED: NEOSTIGMINE 1 MG/ML, 10ML ONE (14:29)
[2018-09-25] MEDS ORDERED: ONDANSETRON 2MG/ML, 2ML ONE (14:29)
[2018-09-25] MEDS ORDERED: DEXAMETHASONE 4 MG/ML, 1ML ONE (14:29)
[2018-09-25] MEDS ORDERED: OXYcodone 5 MG/5 ML ORAL.SOL UDC PO PRN (14:30)
[2018-09-25] MEDS ORDERED: PROMETHAZINE 25 MG/ML, 1ML IV PRN (14:30)
[2018-09-25] MEDS ORDERED: hydrALAzine 20 MG/ML, 1ML IV PRN (14:30)
[2018-09-25] MEDS ORDERED: MIDAZOLAM 1 MG/ML, 2ML IV PRN (14:30)
[2018-09-25] MEDS ORDERED: ALBUTEROL/IPRATROPIUM 2.5MG/0.5MG, 3 ML NPPB PRN (14:30)
[2018-09-25] MEDS ORDERED: ONDANSETRON 2MG/ML, 2ML IV PRN ×2 (14:30→15:00)
[2018-09-25] MEDS ORDERED: METOPROLOL 1 MG/ML, 5ML IV PRN (14:30)
[2018-09-25] MEDS: D5%-0.45% NACL 1,000 ML IV SCH ×2 (14:39→23:27)
[2018-09-25] MEDS ORDERED: PROMETHAZINE 25 MG/ML, 1ML ONE (14:50)
[2018-09-25] MEDS ORDERED: HYDROmorphone 2 MG/ML, 1ML ONE (14:50)
[2018-09-25] MEDS ORDERED: FENTANYL PF 100 MCG/2ML ONE (14:50)
[2018-09-25] MEDS: FENTANYL PF 100 MCG/2ML IV PRN ×2 (14:55→15:25)
[2018-09-25] MEDS ORDERED: POLYETHYLENE GLYCOL 17 GM PACKET PO PRN (15:00)
[2018-09-25] MEDS ORDERED: MAGNESIUM HYDROXIDE 8%, 30ML UDC PO PRN (15:00)
[2018-09-25] MEDS ORDERED: PROMETHAZINE 12.5 MG SUPP PR PRN (15:00)
[2018-09-25] MEDS ORDERED: LANSOPRAZOLE PO PRN (15:00)
[2018-09-25] MEDS ORDERED: DIAZEPAM 5 MG TABLET PO PRN (15:00)
[2018-09-25] MEDS ORDERED: ONDANSETRON 4 MG TABLET PO PRN (15:00)
[2018-09-25] MEDS ORDERED: OCTREOTIDE ACETATE SQ SCH ×2 (15:00→16:00)
[2018-09-25] MEDS ORDERED: SENNA/DOCUSATE TABLET PO PRN (15:00)
[2018-09-25] MEDS ORDERED: PSYLLIUM PACKET PO PRN (15:00)
[2018-09-25] MEDS ORDERED: ALUMINUM/MAG/SIMETHICONE 30 ML UDC PO PRN (15:00)
[2018-09-25] MEDS ORDERED: DIPHENHYDRAMINE 25 MG CAPSULE PO PRN (15:00)
[2018-09-25] MEDS ORDERED: TRAZODONE 100MG TABLET PO PRN (15:00)
[2018-09-25] MEDS: ACETAMINOPHEN 500 MG TABLET PO SCH ×2 (15:00→21:19)
[2018-09-25] MEDS ORDERED: HYDROmorphone 2 MG/ML, 1ML IVPush PRN (15:00)
[2018-09-25] MEDS ORDERED: SCOPOLAMINE PATCH, 1.5MG PATCH.TD72 TD SCH (15:00)
[2018-09-25] MEDS ORDERED: BISACODYL 10 MG SUPP PR PRN (15:00)
[2018-09-25] MEDS ORDERED: DEXAMETHASONE 4 MG/ML, 1ML IVPush ONE (15:00)
[2018-09-25] MEDS ORDERED: PROMETHAZINE 25 MG/ML, 1ML IM PRN (15:00)
[2018-09-25] MEDS: HYDROmorphone 2 MG/ML, 1ML IVPush PRN ×2 (15:00→15:15)
[2018-09-25] MEDS ORDERED: ALBUTEROL/IPRATROPIUM 2.5MG/0.5MG, 3 ML NEB PRN (15:00)
[2018-09-25] MEDS ORDERED: ZOLPIDEM 5MG TABLET PO PRN (15:00)
[2018-09-25] MEDS ORDERED: TRANEXAMIC ACID 1,000 MG in SODIUM CHLORIDE 0.9% 100 ML IVPB ONE (15:15)
[2018-09-25] MEDS: GABAPENTIN 300 MG CAPSULE PO SCH ×2 (16:00→21:22)
[2018-09-25] MEDS: KETOROLAC 30 MG/1 ML IV SCH ×2 (16:16→23:28)
[2018-09-25] MEDS ORDERED: CROMOLYN MC SCH (16:30)
[2018-09-25] MEDS ORDERED: OCTREOTIDE MC SCH (16:30)
[2018-09-25] MEDS ORDERED: LANSOPRAZOLE MC SCH (16:30)
[2018-09-25] MEDS: CALCIUM/VITAMIN D3 250-125 TABLET PO SCH (17:15)
[2018-09-25] MEDS: WARFARIN 5 MG TABLET PO-COUM SCH (17:15)
[2018-09-25] MEDS: FERROUS SULFATE 325 MG TABLET PO SCH (17:15)
[2018-09-25] MEDS: OXYcodone IR 5MG TABLET PO PRN (17:15)
[2018-09-25 19:00] VITALS: BP 91/53
[2018-09-25] MEDS: SPIRONOLACTONE 50 MG TABLET PO SCH (21:00)
[2018-09-25] MEDS ORDERED: OCTREOTIDE 500 MCG/ML, 1ML (0.5MG/ML) SQ SCH (21:00)
[2018-09-25] MEDS: CEFAZOLIN PMX 1GM/50ML 50 ML IVPB SCH (21:17)
[2018-09-25] MEDS: DOCUSATE 100 MG CAPSULE PO SCH (21:18)
[2018-09-25] MEDS: OCTREOTIDE 100MCG/ML, 1ML (0.1MG/ML) SQ SCH (21:21)
[2018-09-25 23:52] VITALS: BP 100/50
[2018-09-26] MEDS: ACETAMINOPHEN 500 MG TABLET PO SCH ×4 (03:22→20:47)
[2018-09-26 03:43] VITALS: BP 99/52
[2018-09-26] MEDS: LEVOTHYROXINE 200 MCG TABLET PO SCH (05:43)
[2018-09-26] MEDS: ENOXAPARIN 30 MG/0.3 ML SQ SCH ×2 (05:43→17:52)
[2018-09-26] MEDS: CEFAZOLIN PMX 1GM/50ML 50 ML IVPB SCH (05:44)
[2018-09-26] MEDS: D5%-0.45% NACL 1,000 ML IV SCH ×3 (05:44→20:49)
[2018-09-26 07:54] VITALS: BP 94/51
[2018-09-26] MEDS: OXYcodone IR 5MG TABLET PO PRN ×3 (08:18→20:47)
[2018-09-26] MEDS: GABAPENTIN 300 MG CAPSULE PO SCH ×3 (08:18→20:47)
[2018-09-26] MEDS: CALCIUM/VITAMIN D3 250-125 TABLET PO SCH ×3 (08:18→17:52)
[2018-09-26] MEDS: FAMCICLOVIR 500 MG TABLET PO SCH (08:18)
[2018-09-26] MEDS: OCTREOTIDE 100MCG/ML, 1ML (0.1MG/ML) SQ SCH ×3 (08:19→20:46)
[2018-09-26] MEDS: DOCUSATE 100 MG CAPSULE PO SCH ×2 (08:20→20:47)
[2018-09-26] MEDS: LOSARTAN 50MG TABLET PO SCH (08:21)
[2018-09-26] MEDS: FLUTICASONE/VILANTEROL 100-25MCG/INH HOMEINH SCH (08:21)
[2018-09-26] MEDS: FERROUS SULFATE 325 MG TABLET PO SCH ×2 (08:21→17:52)
[2018-09-26] MEDS: AMLODIPINE 5 MG TABLET PO SCH (08:21)
[2018-09-26] MEDS: MULTIVITAMINS/MINERALS TABLET PO SCH (08:21)
[2018-09-26] MEDS: ASCORBIC ACID 500 MG TABLET PO SCH (08:22)
[2018-09-26] MEDS: CROMOLYN SODIUM HHN SCH (08:22)
[2018-09-26] MEDS ORDERED: CROMOLYN SODIUM INH SCH (09:00)
[2018-09-26 13:28] VITALS: BP 89/53
[2018-09-26] MEDS: WARFARIN 5 MG TABLET PO-COUM SCH (17:52)
[2018-09-26 19:53] VITALS: BP 105/52
[2018-09-26] MEDS: SPIRONOLACTONE 50 MG TABLET PO SCH (20:48)
[2018-09-27 02:13] VITALS: BP 110/46
[2018-09-27] MEDS: ACETAMINOPHEN 500 MG TABLET PO SCH ×2 (02:18→08:18)
[2018-09-27] MEDS: OXYcodone IR 5MG TABLET PO PRN (02:18)
[2018-09-27] MEDS: LEVOTHYROXINE 200 MCG TABLET PO SCH (06:12)
[2018-09-27] MEDS: ENOXAPARIN 30 MG/0.3 ML SQ SCH (06:12)
[2018-09-27] MEDS: D5%-0.45% NACL 1,000 ML IV SCH (06:12)
[2018-09-27 07:05] VITALS: BP 105/55
[2018-09-27 07:44] LABS: INTERNATIONAL NORMALIZED RATIO 1.13 (0.93-1.1); PROTHROMBIN TIME 11.8 Seconds (9.6-11.5)
[2018-09-27] MEDS: FAMCICLOVIR 500 MG TABLET PO SCH (08:18)
[2018-09-27] MEDS: ASCORBIC ACID 500 MG TABLET PO SCH (08:19)
[2018-09-27] MEDS: OCTREOTIDE 100MCG/ML, 1ML (0.1MG/ML) SQ SCH (08:19)
[2018-09-27] MEDS: FERROUS SULFATE 325 MG TABLET PO SCH (08:19)
[2018-09-27] MEDS: LOSARTAN 50MG TABLET PO SCH (08:19)
[2018-09-27] MEDS: MULTIVITAMINS/MINERALS TABLET PO SCH (08:20)
[2018-09-27] MEDS: AMLODIPINE 5 MG TABLET PO SCH (08:20)
[2018-09-27] MEDS: CALCIUM/VITAMIN D3 250-125 TABLET PO SCH ×2 (08:20→11:19)
[2018-09-27] MEDS: GABAPENTIN 300 MG CAPSULE PO SCH (08:20)
[2018-09-27] MEDS: FLUTICASONE/VILANTEROL 100-25MCG/INH HOMEINH SCH (08:21)
[2018-09-27] MEDS: DOCUSATE 100 MG CAPSULE PO SCH (08:21)
[2018-09-27] MEDS: CROMOLYN SODIUM HHN SCH (08:21)
[2018-09-27] MEDS ORDERED: OXYC5CAP2 PO (13:07)
== END 2018-09-27 13:25 | disposition home health service (06) | DRG 470 ==
LOC: ORIP 10:02 → 4NOR 15:52 → DCLOUNGE 09-27 13:05
PROVIDERS: ADMIT Orthopaedic Surgery; ATTEND Orthopaedic Surgery
PROC: 0SR906A Replacement of Right Hip Joint with Oxidized Zirconium on Polyethylene Synthetic Substitute, Uncemented, Open Approach (ICD-10-PCS; principal; 2018-09-25 13:45)
DX: M16.11 Unilateral primary osteoarthritis, right hip (principal); K21.9 Gastro-esophageal reflux disease without esophagitis; J45.909 Unspecified asthma, uncomplicated; M06.9 Rheumatoid arthritis, unspecified; D3A.8 Other benign neuroendocrine tumors; Z96.652 Presence of left artificial knee joint; G47.33 Obstructive sleep apnea (adult) (pediatric); R33.9 Retention of urine, unspecified; Z88.1 Allergy status to other antibiotic agents; Z88.8 Allergy status to other drugs, medicaments and biological substances; Z79.899 Other long term (current) drug therapy; Z86.718 Personal history of other venous thrombosis and embolism; Z79.01 Long term (current) use of anticoagulants; Z82.61 Family history of arthritis; Z82.49 Family history of ischemic heart disease and other diseases of the circulatory system; Z86.711 Personal history of pulmonary embolism
CPT/HCPCS: 36415; 72170; 85014; 85018; 85610; 85730; C1713; G0378; J0171; J0690; J1100; J1170; J1650; J1885; J2250; J2354; J2405; J2704; J2710; J2795; J3010; C1776; J2765; J7050; J7120

== ENCOUNTER 2018-10-17 12:07 | Observation (INO) | payer OTHER ==
[~2018-10-17] VITALS: Ht 167.6 cm; Wt 99.5 kg
[~2018-10-17 12:07] MED LIST changes: -EPINEPHRINE 1 MG/ML, 1ML ONE; -KETOROLAC 60 MG/2 ML ONE; +OCTR50AM SQ; -ROPIvacaine/PF 0.2%, 20 ML ONE; -SODIUM CHLORIDE 0.9% 0 ML ONE; -TRANEXAMIC ACID 100 MG/ML, 10ML ONE
--- NOTE | 2018-10-17 12:29 | NUR ---
PT ARRIVED TO ROOM 19 VIA WHEELCHAIR WITH TECH. PT C/O CENTRALIZED CHEST PRESSURE ABOUT 20 MINUTES AGO, RADIATED TO RIGHT SHOULDER (WEAKNESS). PT ALSO STATES IT HURTS TO BREATH ACROSS RIGHT CHEST. MD ELMORE AT BEDSIDE. PT DRESSED IN GOWN AND ATTACHED TO MONITOR, AAO X 4, VSS. PT HAS HX PE X 2 AND HIP SURGERY ABOUT 3 WEEKS AGO. PT TAKES COUMADIN AT HOME. CALL LIGHT WITHIN REACH, SPIKE [place] X [address] FALL PRECAUTIONS IN PLACE.
--- NOTE | 2018-10-17 12:47 | NUR ---
20G PIV ESTABLISHED ON RIT AC SINCE PT HAS HX MUPECTOMY ON LEFT SIDE. LABS DRAWN. XRAY TO BEDSIDE FOR EXAM, US IN HALLWAY WAITING.
[2018-10-17 12:58] LABS: BASOPHILS # (AUTO) 0.04 x10^3/uL (0-0.1); BASOPHILS % (AUTO) 1 % (0-1); EOSINOPHILS % (AUTO) 1 % (1-7); LYMPHOCYTES # (AUTO) 2.03 x10^3/uL (1-3.4); LYMPHOCYTES % (AUTO) 26 % (22-44); MD NO; MEAN CORPUSCULAR HEMOGLOBIN 29.2 pg (27.0-34.8); MEAN CORPUSCULAR HGB CONC 31.9 g/dL (32.4-35.8); MEAN CORPUSCULAR VOLUME 91.6 fL (80-100); MEAN PLATELET VOLUME 8.5 fL (7.4-10.4); MONOCYTES # (AUTO) 0.47 x10^3/uL (0.2-0.8); MONOCYTES % (AUTO) 6 % (2-9); NEUTROPHILS % (AUTO) 66 % (42-75); PLATELET COUNT 424 x10^3/uL (130-400); RED BLOOD COUNT 3.99 x10^6/uL (3.82-5.3); RED CELL DISTRIBUTION WIDTH 16.3 % (9.6-15.2)
--- NOTE | 2018-10-17 13:21 | NUR ---
LAB AT BEDSIDE FOR REDRAW. PT RESTING, NAD.
[2018-10-17 13:45] LABS: INTERNATIONAL NORMALIZED RATIO 1.97 (0.93-1.1); PROTHROMBIN TIME 20.2 Seconds (9.6-11.5)
[2018-10-17 13:46] LABS: ALBUMIN 3.3 g/dL (3.4-5.0); ANION GAP 6 mmol/L (5-15); CALCIUM 8.6 mg/dL (8.5-10.1); CHLORIDE 110 mmol/L (98-107)
[2018-10-17 13:53] LABS: ALANINE AMINOTRANSFERASE 12 U/L (12-78); ALKALINE PHOSPHATASE 187 U/L (45-117); BILIRUBIN,TOTAL 0.4 mg/dL (0.2-1.0); CREATININE 0.71 mg/dL (0.55-1.02); TOTAL PROTEIN 7.8 g/dL (6.4-8.2); TROPONIN I < 0.015 ng/mL (0.000-0.045)
--- NOTE | 2018-10-17 14:27 | NUR ---
PT AMBULATORY WITH STEADY GAIT AND FWW TO RESTROOM.
--- NOTE | 2018-10-17 14:32 | NUR ---
PT TO CT.
--- NOTE | 2018-10-17 14:43 | NUR ---
PT BACK FROM CT.
[2018-10-17] MEDS ORDERED: OMNIPAQUE 350 MG/ML, 100ML BOTTLE ONE (14:49)
--- NOTE | 2018-10-17 15:03 | NUR ---
BREAK RN: PT UPRIGHT ON SPIKE AWAKE & COMFORTABLE, RESPONDS APPROP TO STAFF, NAD, COMFORT MEASURES PROVIDED, CALL LIGHT WITHIN REACH, AWAITING TRANSFER TO FLOOR. Addendum: 10/17/18 at 1504 by DANIELA BREAK RN: PT UPRIGHT ON SPIKE AWAKE & COMFORTABLE, RESPONDS APPROP TO STAFF, NAD, COMFORT MEASURES PROVIDED, CALL LIGHT WITHIN REACH.
[2018-10-17 15:40] LABS: TROPONIN I < 0.015 ng/mL (0.000-0.045)
--- NOTE | 2018-10-17 16:07 | NUR ---
THIS RN SPOKE WITH PT ABOUT WANTING TO DISCHARGE INSTEAD OF BE ADMITTED. EDUCATION PROVIDED AND PT AGREEABLE TO ADMISSION AND DR. ELMORE NOTIFIED FOR NEW ORDERS.
--- NOTE | 2018-10-17 16:09 | NUR ---
MD AT BEDSIDE TO DISCUSS ADMISSION PLAN.
--- NOTE | 2018-10-17 16:20 | NUR ---
PT AMBULATED TO RESTROOM WITH FWW, STEADY GAIT.
--- NOTE | 2018-10-17 17:04 | NUR ---
ADMITTING MD AT BEDSIDE.
[2018-10-17] MEDS ORDERED: ONDANSETRON ODT 4 MG PO PRN (17:30)
[2018-10-17] MEDS: GABAPENTIN 300 MG CAPSULE PO SCH ×2 (17:30→21:42)
[2018-10-17] MEDS ORDERED: ACETAMINOPHEN 325 MG TABLET PO PRN (17:30)
[2018-10-17] MEDS ORDERED: TRAZODONE 50MG TABLET PO PRN (17:30)
[2018-10-17] MEDS ORDERED: ONDANSETRON 2MG/ML, 2ML IVPush PRN (17:30)
[2018-10-17] MEDS: HEPARIN 5,000 UNITS/ML, 1ML SQ SCH ×2 (17:30→21:41)
[2018-10-17] MEDS: METOPROLOL TARTRATE 25 MG TABLET PO SCH (18:00)
--- NOTE | 2018-10-17 18:30 | NUR ---
PT RESTING IN [facility] [place], CALL LIGHT WITHIN REACH.
--- NOTE | 2018-10-17 18:40 | NUR ---
ICE BAG PROVIDED FOR COMFORT.
[2018-10-17] MEDS ORDERED: SPIRONOLACTONE 50 MG TABLET PO SCH (21:00)
[2018-10-17] MEDS ORDERED: WARFARIN 2 MG TABLET PO-COUM ONE (21:00)
[2018-10-17] MEDS: OCTREOTIDE 100MCG/ML, 1ML (0.1MG/ML) SQ SCH (21:41)
[2018-10-17 22:47] LABS: TROPONIN I < 0.015 ng/mL (0.000-0.045)
[2018-10-17 23:11] VITALS: BP 135/85
[2018-10-18] MEDS: ALBUTEROL SULFATE 2.5 MG/3 ML NPPB SCH ×3 (00:05→06:30)
[2018-10-18] MEDS: BUDESONIDE 0.5 MG/2 ML INHA NPPB SCH ×2 (00:05→06:31)
[2018-10-18 01:24] VITALS: BP 146/74
[2018-10-18 05:33] LABS: BASOPHILS # (AUTO) 0.03 x10^3/uL (0-0.1); BASOPHILS % (AUTO) 1 % (0-1); EOSINOPHILS # (AUTO) 0.15 x10^3/uL (0-0.4); EOSINOPHILS % (AUTO) 2 % (1-7); LYMPHOCYTES # (AUTO) 1.95 x10^3/uL (1-3.4); LYMPHOCYTES % (AUTO) 28 % (22-44); MD NO; MEAN CORPUSCULAR HEMOGLOBIN 29.5 pg (27.0-34.8); MEAN CORPUSCULAR HGB CONC 31.6 g/dL (32.4-35.8); MEAN CORPUSCULAR VOLUME 93.3 fL (80-100); MEAN PLATELET VOLUME 8.9 fL (7.4-10.4); MONOCYTES % (AUTO) 9 % (2-9); NEUTROPHILS # (AUTO) 4.13 x10^3/uL (1.8-6.8); NEUTROPHILS % (AUTO) 60 % (42-75); PLATELET COUNT 381 x10^3/uL (130-400); RED BLOOD COUNT 3.72 x10^6/uL (3.82-5.3); RED CELL DISTRIBUTION WIDTH 16.3 % (9.6-15.2)
[2018-10-18 05:46] LABS: ANION GAP 9 mmol/L (5-15); CALCIUM 8.5 mg/dL (8.5-10.1); CHLORIDE 107 mmol/L (98-107)
[2018-10-18 05:53] LABS: ALANINE AMINOTRANSFERASE 15 U/L (12-78); ALKALINE PHOSPHATASE 174 U/L (45-117); BILIRUBIN,TOTAL 0.5 mg/dL (0.2-1.0); CHOL/HDL RATIO 3.5; CHOLESTEROL, TOTAL 123 mg/dL (140-239); CREATININE 0.77 mg/dL (0.55-1.02); HDL CHOL % 28 % (28-40); HDL CHOLESTEROL (DIRECT) 35 mg/dL (40-60); LDL CHOLESTEROL,CALCULATED 58 mg/dL (54-169); LDL/HDL RATIO 1.7 (0.5-3.0); TOTAL PROTEIN 7.5 g/dL (6.4-8.2); TRIGLYCERIDES 151 mg/dL (50-200); TROPONIN I < 0.015 ng/mL (0.000-0.045); VLDL CHOLESTEROL 30 mg/dL (0-25)
[2018-10-18] MEDS ORDERED: PANTOPROZOLE 40MG TABLET PO PRN (06:00)
[2018-10-18] MEDS ORDERED: LEVOTHYROXINE 200 MCG TABLET PO SCH (06:00)
[2018-10-18] MEDS: METOPROLOL TARTRATE 25 MG TABLET PO SCH (06:07)
[2018-10-18] MEDS: HEPARIN 5,000 UNITS/ML, 1ML SQ SCH ×3 (06:07→14:28)
[2018-10-18 07:15] LABS: INTERNATIONAL NORMALIZED RATIO 1.72 (0.93-1.1); PROTHROMBIN TIME 17.7 Seconds (9.6-11.5)
[2018-10-18 07:45] VITALS: BP 129/80
[2018-10-18] MEDS ORDERED: LOSARTAN 50MG TABLET PO SCH (09:00)
[2018-10-18] MEDS ORDERED: AMLODIPINE 5 MG TABLET PO SCH (09:00)
[2018-10-18] MEDS ORDERED: FAMCICLOVIR 500 MG TABLET PO SCH (09:00)
[2018-10-18] MEDS: GABAPENTIN 300 MG CAPSULE PO SCH (09:27)
[2018-10-18] MEDS: OCTREOTIDE 100MCG/ML, 1ML (0.1MG/ML) SQ SCH (09:30)
[2018-10-18 13:27] VITALS: BP 90/57
[2018-10-18] MEDS ORDERED: ENOX40SY4 SQ (14:13)
== END 2018-10-18 16:20 | disposition home or self-care (01) ==
LOC: ED 12:46 → EDIP 16:48 → INTOOBSV 16:48 → EDIP 16:49 → 5SO 19:53 → DCLOUNGE 10-18 15:47
PROVIDERS: ADMIT Hospitalist; ATTEND Hospitalist
DX: R07.89 Other chest pain (principal); R60.0 Localized edema; D47.3 Essential (hemorrhagic) thrombocythemia; D68.69 Other thrombophilia; I11.9 Hypertensive heart disease without heart failure; C7A.00 Malignant carcinoid tumor of unspecified site; K21.9 Gastro-esophageal reflux disease without esophagitis; G47.00 Insomnia, unspecified; G47.33 Obstructive sleep apnea (adult) (pediatric); E89.0 Postprocedural hypothyroidism; J45.909 Unspecified asthma, uncomplicated; G62.9 Polyneuropathy, unspecified; E55.9 Vitamin D deficiency, unspecified; Z79.01 Long term (current) use of anticoagulants; Z79.899 Other long term (current) drug therapy; Z86.711 Personal history of pulmonary embolism; Z85.3 Personal history of malignant neoplasm of breast; Z96.641 Presence of right artificial hip joint; Z82.49 Family history of ischemic heart disease and other diseases of the circulatory system; Z83.3 Family history of diabetes mellitus
CPT/HCPCS: 36415; 71045; 71275; 80053; 80061; 83690; 83880; 84443; 84484; 85025; 85610; 85730; 93005; 93306; 93971; 94640; 96372; 99284; G0378; J1644; J2354; J7613; J7626; Q9967

== ENCOUNTER 2018-11-02 09:57 | Outpatient (CLI) | payer OTHER | END 2018-11-02 23:59 | disposition home or self-care (01) | LOC: PETCFH 09:57 | PROVIDERS: ATTEND Physician Assistant | DX: R10.13 Epigastric pain (principal) | CPT/HCPCS: 78264; A9541 ==

== ENCOUNTER 2018-11-20 20:18 | Emergency (ER) | payer OTHER ==
[~2018-11-20] VITALS: Ht 167.6 cm; Wt 99.2 kg
[2018-11-20 22:00] VITALS: BP 134/68
== END 2018-11-20 22:23 | disposition home or self-care (01) ==
LOC: ED 22:14
DX: R07.89 Other chest pain (principal); R91.1 Solitary pulmonary nodule; I10 Essential (primary) hypertension; K21.9 Gastro-esophageal reflux disease without esophagitis; Z86.718 Personal history of other venous thrombosis and embolism; Z85.3 Personal history of malignant neoplasm of breast; Z90.49 Acquired absence of other specified parts of digestive tract; Z98.61 Coronary angioplasty status
CPT/HCPCS: 36415; 71045; 80053; 83690; 84484; 85025; 85610; 93005; 99284

== ENCOUNTER 2019-04-19 10:38 | Emergency (ER) | payer OTHER ==
[~2019-04-19] VITALS: Ht 167.6 cm; Wt 108.0 kg
[~2019-04-19 10:38] MED LIST changes: +ACET500T64 PO; -ACET500T71 PO; -MINO100C PO; +MINO100C61 PO
--- NOTE | 2019-04-19 10:56 | NUR ---
PT BIB EMS FOR SOB THAT STARTED THIS AM W CHEST PAIN TO PALPIATION. PT RECEIEVED 2 BREATHING TX IN ROUTE. SYMPTOMS NOT RELIEVED. PT NOT IN ANY RESP DISTRESS. PT STATES "HAS HX OF PE, AND THIS FEELS SIMILAR TO LAST TIME" BUSGIRL APPLIED, VS STABLE ON RA.
[2019-04-19] MEDS ORDERED: KETOROLAC 30 MG/1 ML IVPush ONE (11:30)
[2019-04-19] MEDS ORDERED: KETOROLAC 30 MG/1 ML ONE (11:30)
[2019-04-19] MEDS ORDERED: BENZONATATE 100 MG CAPSULE PO ONE (11:30)
[2019-04-19] MEDS ORDERED: BENZONATATE 100 MG CAPSULE ONE (11:30)
--- NOTE | 2019-04-19 12:39 | NUR ---
PT AMBULATED TO BATHROOM W STEADY GATE
[2019-04-19 14:03] LABS: BASOPHILS # (AUTO) 0.08 x10^3/uL (0-0.1); BASOPHILS % (AUTO) 1 % (0-1); EOSINOPHILS # (AUTO) 0.19 x10^3/uL (0-0.4); EOSINOPHILS % (AUTO) 2 % (1-7); LYMPHOCYTES # (AUTO) 2.26 x10^3/uL (1-3.4); LYMPHOCYTES % (AUTO) 24 % (22-44); MD NO; MEAN CORPUSCULAR HEMOGLOBIN 28.1 pg (27.0-34.8); MEAN CORPUSCULAR HGB CONC 32.4 g/dL (32.4-35.8); MEAN CORPUSCULAR VOLUME 86.9 fL (80-100); MONOCYTES # (AUTO) 0.72 x10^3/uL (0.2-0.8); MONOCYTES % (AUTO) 8 % (2-9); NEUTROPHILS # (AUTO) 6.24 x10^3/uL (1.8-6.8); NEUTROPHILS % (AUTO) 66 % (42-75); PLATELET COUNT 269 x10^3/uL (130-400); RED CELL DISTRIBUTION WIDTH 17.1 % (9.6-15.2)
[2019-04-19 14:06] LABS: INTERNATIONAL NORMALIZED RATIO 1.44 (0.93-1.1); PROTHROMBIN TIME 15.3 Seconds (9.6-11.5)
[2019-04-19 14:07] LABS: ALBUMIN 3.1 g/dL (3.4-5.0); ANION GAP 8 mmol/L (5-15); CALCIUM 7.7 mg/dL (8.5-10.1); CHLORIDE 109 mmol/L (98-107); CREATININE 0.71 mg/dL (0.55-1.02)
--- NOTE | 2019-04-19 14:30 | NUR ---
BREAK RN: DR ELMORE AT BEDSIDE, LAB RESULTS AND D/C PLAN DISCUSSED WITH PT AND QUESTIONS ANSWERED
--- NOTE | 2019-04-19 14:31 | NUR ---
BREAK RN: RIGHT HAND 22G PIV D/C'D TIP INTACT, HEMOSTASIS OBTAINED W/O DIFFICULTY. DRESSING CDI.
[2019-04-19 14:39] VITALS: BP 155/77
--- NOTE | 2019-04-19 14:40 | NUR ---
BREAK RN: Patient/Caregiver given discharge instructions and they have confirmed that they understand the instructions. Patient ambulatory with steady gait.
== END 2019-04-19 14:41 | disposition home or self-care (01) ==
LOC: ED 14:38
DX: R05 Cough (principal); R09.81 Nasal congestion; I10 Essential (primary) hypertension; K21.9 Gastro-esophageal reflux disease without esophagitis; J45.909 Unspecified asthma, uncomplicated; Z90.49 Acquired absence of other specified parts of digestive tract
CPT/HCPCS: 36415; 71045; 80048; 82040; 85025; 85610; 85730; 93005; 96374; 99284; J1885

== ENCOUNTER → 2019-05-14 | Outpatient (CLI) | payer OTHER ==
[~2019-05-14] MED LIST changes: -FAMC500T33 PO; +FAMC500T4 PO; -ONDA8TAB15 PO; +ONDA8TAB18 PO; -TRAZ-137 PO; +TRAZ-175 PO
== END | disposition home or self-care (01) ==
LOC: ROC 07:37
PROVIDERS: ATTEND Radiology Radiation Oncology
DX: C50.912 Malignant neoplasm of unspecified site of left female breast (principal); R91.8 Other nonspecific abnormal finding of lung field
CPT/HCPCS: 99213; G0463

== ENCOUNTER 2019-10-22 14:18 | Observation (INO) | payer OTHER ==
[~2019-10-22] VITALS: Ht 168.9 cm; Wt 112.5 kg
[~2019-10-22 14:18] MED LIST changes: -WARF5TAB PO; +WARF5TAB2 PO
--- NOTE | 2019-10-22 14:35 | NUR ---
PT AMBULATES WELL FROM TRIAGE TO ED ROOM.
[2019-10-22] MEDS ORDERED: MORPHINE SULFATE 4 MG/ML, 1ML IVPush PRN (15:30)
[2019-10-22] MEDS ORDERED: SODIUM CHLORIDE FLUSH 10ML SYR IVF ONE (15:30)
[2019-10-22] MEDS ORDERED: MORPHINE SULFATE 4 MG/ML, 1ML ONE (16:05)
[2019-10-22 16:12] LABS: BASOPHILS # (AUTO) 0.04 x10^3/uL (0-0.1); BASOPHILS % (AUTO) 0 % (0-1); EOSINOPHILS # (AUTO) 0.17 x10^3/uL (0-0.4); EOSINOPHILS % (AUTO) 2 % (1-7); LYMPHOCYTES # (AUTO) 2.17 x10^3/uL (1-3.4); LYMPHOCYTES % (AUTO) 20 % (22-44); MD NO; MEAN CORPUSCULAR HEMOGLOBIN 28.4 pg (27.0-34.8); MEAN CORPUSCULAR HGB CONC 31.6 g/dL (32.4-35.8); MONOCYTES # (AUTO) 0.79 x10^3/uL (0.2-0.8); MONOCYTES % (AUTO) 7 % (2-9); NEUTROPHILS # (AUTO) 7.61 x10^3/uL (1.8-6.8); NEUTROPHILS % (AUTO) 71 % (42-75); PLATELET COUNT 295 x10^3/uL (130-400); RED BLOOD COUNT 4.68 x10^6/uL (3.82-5.3); RED CELL DISTRIBUTION WIDTH 16.2 % (9.6-15.2)
[2019-10-22] MEDS ORDERED: LEVO150T PO (16:17)
[2019-10-22] MEDS ORDERED: [UNRECOGNIZED DRUG - OTHER] (16:17)
[2019-10-22 16:24] LABS: ALBUMIN 3.4 g/dL (3.4-5.0); ANION GAP 7 mmol/L (5-15); CALCIUM 8.2 mg/dL (8.5-10.1); CHLORIDE 109 mmol/L (98-107)
[2019-10-22 16:31] LABS: ALANINE AMINOTRANSFERASE 21 U/L (12-78); ALKALINE PHOSPHATASE 123 U/L (45-117); BILIRUBIN,TOTAL 0.2 mg/dL (0.2-1.0); CREATININE 0.97 mg/dL (0.55-1.02); TOTAL PROTEIN 8.1 g/dL (6.4-8.2); TROPONIN I < 0.015 ng/mL (0.000-0.045)
[2019-10-22 16:43] LABS: INTERNATIONAL NORMALIZED RATIO 3.06 (0.93-1.1); PROTHROMBIN TIME 32.8 Seconds (9.6-11.5)
--- NOTE | 2019-10-22 18:57 | NUR ---
REPORT GIVEN TO NEVA HARP TO ASSUME CARE UPON TRANSFER TO CARDIAC TELE ROOM 12
[2019-10-22] MEDS ORDERED: PANTOPRAZOLE 20MG TABLET PO PRN (20:00)
[2019-10-22] MEDS ORDERED: OCTREOTIDE MC SCH (20:00)
[2019-10-22] MEDS ORDERED: ALBUTEROL/IPRATROPIUM 2.5MG/0.5MG, 3 ML INLINE PRN (20:00)
[2019-10-22] MEDS ORDERED: TRAZODONE 50MG TABLET PO PRN (20:00)
[2019-10-22 20:16] VITALS: BP 154/86
[2019-10-22] MEDS ORDERED: hydrALAzine 20 MG/ML, 1ML IVPush PRN (20:30)
[2019-10-22] MEDS ORDERED: ONDANSETRON 2MG/ML, 2ML IVPush PRN (20:30)
[2019-10-22] MEDS ORDERED: HYDROcodone/APAP 5/325 TABLET PO PRN (20:30)
[2019-10-22] MEDS ORDERED: MELATONIN 5 MG TABLET PO PRN (20:30)
[2019-10-22] MEDS ORDERED: SPIRONOLACTONE 50 MG TABLET PO SCH (21:00)
[2019-10-22] MEDS ORDERED: MAALOX/HYOSCYAMINE/LIDOCAINE 45 ML BTL PO ONE (21:30)
[2019-10-22] MEDS ORDERED: ASPIRIN 81 MG TABLET CHEW PO ONE (21:30)
[2019-10-22] MEDS: WARFARIN 5 MG TABLET PO-COUM SCH (21:53)
[2019-10-22] MEDS: OCTREOTIDE 500 MCG/ML, 1ML (0.5MG/ML) SQ SCH (21:54)
[2019-10-22] MEDS: GABAPENTIN 300 MG CAPSULE PO SCH (21:54)
[2019-10-22] MEDS: FAMOTIDINE 20 MG TABLET PO SCH (21:54)
[2019-10-22 22:16] LABS: TROPONIN I < 0.015 ng/mL (0.000-0.045)
[2019-10-22] MEDS: ACETAMINOPHEN 325 MG TABLET PO PRN (22:16)
[2019-10-23 01:01] VITALS: BP 131/84
[2019-10-23 05:21] LABS: BASOPHILS # (AUTO) 0.09 x10^3/uL (0-0.1); BASOPHILS % (AUTO) 1 % (0-1); EOSINOPHILS # (AUTO) 0.21 x10^3/uL (0-0.4); EOSINOPHILS % (AUTO) 2 % (1-7); LYMPHOCYTES # (AUTO) 2.35 x10^3/uL (1-3.4); LYMPHOCYTES % (AUTO) 26 % (22-44); MD NO; MEAN CORPUSCULAR HEMOGLOBIN 28.1 pg (27.0-34.8); MEAN CORPUSCULAR HGB CONC 31.7 g/dL (32.4-35.8); MEAN CORPUSCULAR VOLUME 88.6 fL (80-100); MEAN PLATELET VOLUME 9.5 fL (7.4-10.4); MONOCYTES # (AUTO) 0.79 x10^3/uL (0.2-0.8); MONOCYTES % (AUTO) 9 % (2-9); NEUTROPHILS # (AUTO) 5.76 x10^3/uL (1.8-6.8); NEUTROPHILS % (AUTO) 63 % (42-75); PLATELET COUNT 240 x10^3/uL (130-400); RED BLOOD COUNT 4.59 x10^6/uL (3.82-5.3); RED CELL DISTRIBUTION WIDTH 15.6 % (9.6-15.2)
[2019-10-23 05:23] LABS: INTERNATIONAL NORMALIZED RATIO 2.91 (0.93-1.1); PROTHROMBIN TIME 31.2 Seconds (9.6-11.5)
[2019-10-23 05:25] LABS: ALANINE AMINOTRANSFERASE 20 U/L (12-78); ALBUMIN 3.1 g/dL (3.4-5.0); ANION GAP 6 mmol/L (5-15); CALCIUM 8.1 mg/dL (8.5-10.1); CHLORIDE 106 mmol/L (98-107); CREATININE 0.83 mg/dL (0.55-1.02)
[2019-10-23 05:30] LABS: ALKALINE PHOSPHATASE 115 U/L (45-117); BILIRUBIN,TOTAL 0.3 mg/dL (0.2-1.0); TOTAL PROTEIN 7.5 g/dL (6.4-8.2); TROPONIN I < 0.015 ng/mL (0.000-0.045)
[2019-10-23] MEDS ORDERED: LEVOTHYROXINE 150 MCG TABLET PO SCH (06:00)
[2019-10-23] MEDS ORDERED: METOPROLOL SUCCINATE 25 MG TAB.ER.24H PO SCH ×4 (06:00→09:00)
[2019-10-23 07:53] VITALS: BP 149/82
[2019-10-23] MEDS: FAMOTIDINE 20 MG TABLET PO SCH (08:14)
[2019-10-23] MEDS: GABAPENTIN 300 MG CAPSULE PO SCH ×2 (08:14→16:41)
[2019-10-23] MEDS: OCTREOTIDE 500 MCG/ML, 1ML (0.5MG/ML) SQ SCH ×2 (08:15→16:42)
[2019-10-23] MEDS: ACETAMINOPHEN 325 MG TABLET PO PRN (08:28)
[2019-10-23] MEDS ORDERED: AMLODIPINE 5 MG TABLET PO SCH (09:00)
[2019-10-23] MEDS ORDERED: FAMCICLOVIR 500 MG TABLET PO SCH (09:00)
[2019-10-23] MEDS ORDERED: PANTOPRAZOLE 40MG TABLET PO SCH (09:00)
[2019-10-23] MEDS ORDERED: FLUTICASONE/VILANTEROL 100-25MCG/INH INH SCH (09:00)
[2019-10-23] MEDS ORDERED: REGADENOSON 0.4 MG/5 ML SYRINGE ONE (12:32)
[2019-10-23 14:10] VITALS: BP 137/86
[2019-10-23] MEDS ORDERED: LEVO150T PO (17:46)
[2019-10-23] MEDS ORDERED: FAMO20TA7 PO (17:46)
[2019-10-23] MEDS: WARFARIN 5 MG TABLET PO-COUM SCH (18:17)
[2019-10-24] MEDS ORDERED: LEVOTHYROXINE 175 MCG TABLET PO SCH (06:00)
[2019-11-01] MEDS ORDERED: OCTREOTIDE 100MCG/ML, 1ML (0.1MG/ML) SQ SCH (09:00)
== END 2019-10-23 18:59 | disposition home or self-care (01) ==
LOC: ED 15:20 → EDIP 17:59 → INTOOBSV 17:59 → 5SO 19:16
PROVIDERS: ADMIT Hospitalist; ATTEND Hospitalist
DX: R07.2 Precordial pain (principal); R10.13 Epigastric pain; I11.9 Hypertensive heart disease without heart failure; I25.10 Atherosclerotic heart disease of native coronary artery without angina pectoris; E03.9 Hypothyroidism, unspecified; D3A.00 Benign carcinoid tumor of unspecified site; K21.9 Gastro-esophageal reflux disease without esophagitis; G47.00 Insomnia, unspecified; G47.33 Obstructive sleep apnea (adult) (pediatric); G62.9 Polyneuropathy, unspecified; R00.1 Bradycardia, unspecified; J45.909 Unspecified asthma, uncomplicated; Z85.3 Personal history of malignant neoplasm of breast; Z79.899 Other long term (current) drug therapy; Z86.711 Personal history of pulmonary embolism; Z85.118 Personal history of other malignant neoplasm of bronchus and lung; Z92.3 Personal history of irradiation; Z86.718 Personal history of other venous thrombosis and embolism
CPT/HCPCS: 36415; 71045; 78452; 80053; 84443; 84484; 85025; 85610; 93005; 93017; 93306; 96372; 96374; 99285; A9502; C9898; G0378; J2270; J2354; J2785

== ENCOUNTER → 2019-12-24 | Outpatient (CLI) | payer OTHER ==
[~2019-12-24] MED LIST changes: +FAMO20TA7 PO; +[UNRECOGNIZED DRUG - OTHER]
== END | disposition home or self-care (01) ==
LOC: CFH 10:49
PROVIDERS: ATTEND Obstetrics & Gynecology Gynecology
DX: R10.2 Pelvic and perineal pain (principal)
CPT/HCPCS: 76830

== ENCOUNTER 2020-01-07 10:11 | Emergency (ER) | payer OTHER ==
[~2020-01-07] VITALS: Ht 167.6 cm; Wt 114.0 kg
[2020-01-07] MEDS ORDERED: MAALOX/HYOSCYAMINE/LIDOCAINE 45 ML BTL ONE (10:24)
[2020-01-07] MEDS ORDERED: MAALOX/HYOSCYAMINE/LIDOCAINE 45 ML BTL PO ONE (10:30)
--- NOTE | 2020-01-07 10:42 | NUR ---
LAB IN TO DRAW BLOOD. PT HAS BEEN MEDICATED PER EMAR.
[2020-01-07 10:57] LABS: BASOPHILS % (AUTO) 1 % (0-1); EOSINOPHILS % (AUTO) 1 % (1-7); LYMPHOCYTES % (AUTO) 20 % (22-44); MEAN CORPUSCULAR HEMOGLOBIN 28.3 pg (27.0-34.8); MEAN CORPUSCULAR HGB CONC 32.2 g/dL (32.4-35.8); MEAN PLATELET VOLUME 8.9 fL (7.4-10.4); MONOCYTES % (AUTO) 9 % (2-9); NEUTROPHILS % (AUTO) 69 % (42-75); PLATELET COUNT 262 x10^3/uL (130-400); RED BLOOD COUNT 4.46 x10^6/uL (3.82-5.3); RED CELL DISTRIBUTION WIDTH 16.8 % (9.6-15.2)
[2020-01-07 11:07] LABS: ALANINE AMINOTRANSFERASE 21 U/L (12-78); ALBUMIN 3.2 g/dL (3.4-5.0); ANION GAP 5 mmol/L (5-15); CALCIUM 8.4 mg/dL (8.5-10.1); CHLORIDE 109 mmol/L (98-107); INTERNATIONAL NORMALIZED RATIO 3.45 (0.93-1.1)
[2020-01-07 11:12] LABS: ALKALINE PHOSPHATASE 113 U/L (45-117); BILIRUBIN,TOTAL 0.3 mg/dL (0.2-1.0); TOTAL PROTEIN 7.8 g/dL (6.4-8.2); TROPONIN I < 0.015 ng/mL (0.000-0.045)
[2020-01-07 11:36] LABS: MD SCAN
--- NOTE | 2020-01-07 11:46 | NUR ---
PT ABLE TO AMBULATE STEADILY TO BATHROOM. ALL RESULTS BACK, PT UP FOR RECHECK.
[2020-01-07 12:24] VITALS: BP 130/70
== END 2020-01-07 12:26 | disposition home or self-care (01) ==
LOC: ED 10:50
DX: R07.89 Other chest pain (principal); R11.0 Nausea; R42 Dizziness and giddiness; I10 Essential (primary) hypertension; K21.9 Gastro-esophageal reflux disease without esophagitis; Z85.3 Personal history of malignant neoplasm of breast; J45.909 Unspecified asthma, uncomplicated
CPT/HCPCS: 36415; 71045; 80053; 83690; 84484; 85025; 85610; 85730; 93005; 99285

== ENCOUNTER → 2020-03-13 | Outpatient (CLI) | payer OTHER | END | disposition home or self-care (01) | LOC: ROC 07:14 | PROVIDERS: ATTEND Radiology Radiation Oncology | DX: Z08 Encounter for follow-up examination after completed treatment for malignant neoplasm (principal); Z85.3 Personal history of malignant neoplasm of breast | CPT/HCPCS: 99213; G0463 ==

== ENCOUNTER 2020-04-07 19:24 | Emergency (ER) | payer OTHER ==
[~2020-04-07] VITALS: Ht 167.6 cm; Wt 113.0 kg
[~2020-04-07 19:24] MED LIST changes: -ESCI10TA PO; +ESCI10TA5 PO; -ESCI20TA PO; +ESCI20TA5 PO
[2020-04-07 20:49] LABS: MICROSCOPIC AUTO
[2020-04-07 20:50] LABS: BASOPHILS % (AUTO) 1 % (0-1); EOSINOPHILS % (AUTO) 1 % (1-7); LYMPHOCYTES % (AUTO) 18 % (22-44); MEAN CORPUSCULAR HEMOGLOBIN 28.5 pg (27.0-34.8); MEAN CORPUSCULAR HGB CONC 32.6 g/dL (32.4-35.8); MEAN PLATELET VOLUME 8.8 fL (7.4-10.4); MONOCYTES % (AUTO) 7 % (2-9); NEUTROPHILS % (AUTO) 73 % (42-75); PLATELET COUNT 284 x10^3/uL (130-400); RED BLOOD COUNT 4.58 x10^6/uL (3.82-5.3); RED CELL DISTRIBUTION WIDTH 16.3 % (9.6-15.2)
[2020-04-07 20:59] LABS: MD NO
[2020-04-07 21:06] LABS: ALBUMIN 3.2 g/dL (3.4-5.0); ANION GAP 6 mmol/L (5-15); CALCIUM 8.2 mg/dL (8.5-10.1); CHLORIDE 106 mmol/L (98-107)
[2020-04-07 21:10] LABS: ALANINE AMINOTRANSFERASE 20 U/L (12-78); ALKALINE PHOSPHATASE 124 U/L (45-117); BILIRUBIN,TOTAL 0.3 mg/dL (0.2-1.0); CREATININE 0.94 mg/dL (0.55-1.02); TROPONIN I < 0.015 ng/mL (0.000-0.045)
[2020-04-07 22:29] VITALS: BP 132/74
[2020-04-07 22:35] LABS: INTERNATIONAL NORMALIZED RATIO 1.72 (0.93-1.1); PROTHROMBIN TIME 18.1 Seconds (9.6-11.5)
== END 2020-04-07 22:30 | disposition home or self-care (01) ==
LOC: ED 20:53
DX: N30.00 Acute cystitis without hematuria (principal); I10 Essential (primary) hypertension; R07.9 Chest pain, unspecified; R94.31 Abnormal electrocardiogram [ECG] [EKG]; J45.909 Unspecified asthma, uncomplicated; Z85.3 Personal history of malignant neoplasm of breast; K21.9 Gastro-esophageal reflux disease without esophagitis; Z86.718 Personal history of other venous thrombosis and embolism; Z98.61 Coronary angioplasty status; Z90.49 Acquired absence of other specified parts of digestive tract
CPT/HCPCS: 36415; 71045; 80053; 81001; 83690; 84484; 85025; 85610; 87086; 93005; 99285

== ENCOUNTER 2020-06-26 09:34 | Emergency (ER) | payer OTHER ==
[~2020-06-26] VITALS: Ht 167.6 cm; Wt 113.6 kg
[~2020-06-26 09:34] MED LIST changes: -ESCI10TA5 PO; +ESCI10TA97 PO; -ESCI20TA5 PO; +ESCI20TA8 PO; +HYDR-1067 PO; -HYDR-3240 PO
--- NOTE | 2020-06-26 09:44 | NUR ---
LESLIE JaquezX STARTED LAST TUESDAY. PT STATES SHE WENT TO ON [address] ON 06/25 AMD WAS DX W/ PNA AND PLACED ON DOXYCYCLINE. PT STATES SHE STARTED FEELING WORSE AND CALLED 911 AND BROUGHT TO ED VIA EMS. PT HAS HX LUNG CA, ASTHMA. PT PLACED ON MONITORS. PT RESTING ON GURNEY. NADN. VSS. SPEAKING IN FULL SENTENCES.
--- NOTE | 2020-06-26 10:20 | NUR ---
PT RESTING ON GURNEY. NADN. ESCOBEDO.
--- NOTE | 2020-06-26 10:51 | NUR ---
PT NOTED TO HAVE MILD INTERSTITIAL EDEMA ON CXR. DISCUSSED W/ ERP DR. ELMORE IN REGARDS TO POSSIBLE BNP LAB TEST. PER ERP WILL REVIEW PT CHART BEFORE DECIDING.
[2020-06-26 11:24] LABS: BASOPHILS % (AUTO) 1 % (0-1); EOSINOPHILS % (AUTO) 1 % (1-7); LYMPHOCYTES % (AUTO) 21 % (22-44); MEAN CORPUSCULAR HEMOGLOBIN 29.1 pg (27.0-34.8); MEAN CORPUSCULAR HGB CONC 32.5 g/dL (32.4-35.8); MEAN PLATELET VOLUME 8.9 fL (7.4-10.4); MONOCYTES % (AUTO) 8 % (2-9); NEUTROPHILS % (AUTO) 69 % (42-75); PLATELET COUNT 277 x10^3/uL (130-400); RED BLOOD COUNT 4.58 x10^6/uL (3.82-5.3); RED CELL DISTRIBUTION WIDTH 16.2 % (9.6-15.2)
[2020-06-26 11:26] LABS: MD NO
[2020-06-26 11:27] LABS: ALBUMIN 3.5 g/dL (3.4-5.0); ANION GAP 4 mmol/L (5-15); CALCIUM 8.6 mg/dL (8.5-10.1); CHLORIDE 109 mmol/L (98-107); CREATININE 0.89 mg/dL (0.55-1.02)
[2020-06-26 11:28] LABS: INTERNATIONAL NORMALIZED RATIO 2.39 (0.93-1.1); PROTHROMBIN TIME 25.1 Seconds (9.6-11.5)
--- NOTE | 2020-06-26 11:30 | NUR ---
PT RESTING ON GURNEY. NADN. ESCOBEDO.
[2020-06-26 12:47] VITALS: BP 147/75
--- NOTE | 2020-06-26 12:47 | NUR ---
PT TO AND FROM CT IN STABLE CONDITION. PT RESTING ON GURNEY. NADN. ESCOBEDO.
[2020-06-26] MEDS ORDERED: OMNIPAQUE 350 MG/ML, 100ML BOTTLE ONE (12:54)
--- NOTE | 2020-06-26 13:11 | NUR ---
PT CHART REVIEWED AND PLACED FOR RECHECK.
== END 2020-06-26 13:31 | disposition home or self-care (01) ==
LOC: ED 10:14
DX: R06.00 Dyspnea, unspecified (principal); R07.89 Other chest pain; R05 Cough; R00.2 Palpitations; I10 Essential (primary) hypertension; Z88.8 Allergy status to other drugs, medicaments and biological substances; Z85.3 Personal history of malignant neoplasm of breast; Z86.73 Personal history of transient ischemic attack (TIA), and cerebral infarction without residual deficits; Z79.899 Other long term (current) drug therapy; Z86.718 Personal history of other venous thrombosis and embolism
CPT/HCPCS: 36415; 71045; 71275; 80048; 82040; 83605; 83880; 84145; 85025; 85610; 85730; 87040; 93005; 99285; Q9967